=== PATIENT | female | born 1965 | race Caucasian/White ===

== ENCOUNTER 2019-01-07 11:40 | Emergency (ER) | payer OTHER, SELFPAY ==
[2019-01-07 11:40] VITALS: BP 148/93; PULSE 89; RESP 16; TEMP 36.6; O2SAT 95
--- NOTE | 2019-01-07 12:25 | ED_ITS ---
HPI - Abdominal Pain <CLARISSA Jovel - Last Filed: 01/07/19 22:11> General Chief Complaint: Abdominal Pain Stated Complaint: right side abd pain under R Breast down to ovarie Time Seen by Provider: 01/07/19 12:03 Source: patient Mode of arrival: ambulatory Limitations: no limitations History of Present Illness HPI narrative: 53-year-old healthy female that is a nonsmoker here for complaint of having right upper quadrant pain for the last 3 weeks. She was seen at [facility] emergency room 2 weeks ago and had a CT she reports that she was told that she had gallstones however no acute cholecystitis. She reports that her pain radiates down to her right shoulder area. She states she did have some nausea vomiting couple of days ago however she is tolerating p.o. intake at this time. Last p.o. intake was some Gatorade earlier today. She denies any urinary symptoms. Last bowel movement was earlier today and was unremarkable. She denies any constipation. No fevers or chills. She denies any stressors relievers of her discomfort. MD complaint: abdominal pain Related Data Allergies Allergy/AdvReac Type Severity Reaction Status Date / Time hydrocodone Allergy Verified 01/07/19 11:58 oxycodone AdvReac Agitated Verified 01/07/19 11:59 Review of Systems <CLARISSA Jovel - Last Filed: 01/07/19 22:11> Constitutional Denies chills, Denies fever(s), Denies lethargy and Denies weakness Eyes Denies change in vision, Denies eye discharge, Denies irritation and Denies loss of vision ENT Ears, Nose, Mouth, and Throat: Denies change in voice, Denies neck pain and Denies sore throat Cardiovascular Denies chest pain, Denies irregular heart rhythm, Denies lightheadedness, Denies palpitations, Denies dyspnea, Denies dyspnea on exertion and Denies orthopnea Respiratory Denies cough, Denies dyspnea, Denies dyspnea on exertion and Denies wheezing Gastrointestinal Gastrointestinal: Reports abdominal pain Genitourinary Denies hematuria, Denies flank pain, Denies urinary incontinence and Denies urinary urgency Musculoskeletal Denies neck pain Integumentary/Breasts Denies pruritus, Denies erythema, Denies rash and Denies wounds Neurologic Denies confusion, Denies loss of vision and Denies weakness Psychiatric Denies anxiety, Denies confusion, Denies depression, Denies homicidal ideation and Denies suicidal ideation Endocrine Denies palpitations Hematologic/Lymphatic Denies easy bruising Allergic/Immunologic Denies wheezing PFSH <CLARISSA Jovel - Last Filed: 01/07/19 22:11> Social History Smoking Status: Never smoker Social History Smoking Status: Never smoker Exam <CLARISSA Jovel - Last Filed: 01/07/19 22:11> Initial Vital Signs Initial Vital Signs: Vital Signs Temperature 97.9 F 01/07/19 11:40 Pulse Rate 89 01/07/19 11:40 Respiratory Rate 16 01/07/19 11:40 Blood Pressure 148/93 H 01/07/19 11:40 Pulse Oximetry 95 01/07/19 11:40 Const General: cooperative and well developed Nutritional Appearance: well nourished Orientation: alert, awake, oriented x3 and not confused HENMT Mouth: oral mucosae normal and moist mucous membranes Eyes Conjunctivae: conjunctivae normal Sclera: sclerae normal Pupils: PERRL EOM: EOM intact bilaterally Resp Effort & Inspection: normal respiratory effort, able to speak in complete sentences, no respiratory distress and no use of accessory muscles Auscultation: clear to auscultation bilaterally, no rales, no rhonchi and no wheezes Cardio Rate: regular rate Rhythm: regular rhythm Heart Sounds: no click, no gallops, no murmurs and no rubs GI Inspection: non-distended Palpation: soft, no hepatosplenomegaly, No guarding, No pulsatile mass and tender Auscultation: normal bowel sounds Other: Tenderness on palpation right upper quadrant General: No CVA tenderness Skin General: no rashes or lesions noted, No jaundice and No petechiae Neuro General: alert, oriented x3, gait normal and no focal motor deficits Speech: speech normal <Naina Chappell DO - Last Filed: 01/08/19 07:42> Initial Vital Signs Initial Vital Signs: Vital Signs Temperature 97.9 F 01/07/19 11:40 Pulse Rate 89 01/07/19 11:40 Respiratory Rate 16 01/07/19 11:40 Blood Pressure 148/93 H 01/07/19 11:40 Pulse Oximetry 95 03/21/19 11:40 Course <CLARISSA Jovel - Last Filed: 01/07/19 22:11> Orders Ordered: Discontinued Medications Sodium Chloride (Normal Saline 0.9%) 1,000 mls @ 1,000 mls/hr IV BOLUS ONE Stop: 01/07/19 13:10 Last Infusion: 01/07/19 14:17 Dose: 0 mls/hr Admin: 01/07/19 12:59 Dose: 1,000 mls/hr Vital Signs - 8 hr 01/07/19 15:37 Pulse Rate 76 Respiratory Rate 18 Blood Pressure 145/88 H Pulse Oximetry 98 <Naina Chappell DO - Last Filed: 01/08/19 07:42> Orders Ordered: Discontinued Medications Sodium Chloride (Normal Saline 0.9%) 1,000 mls @ 1,000 mls/hr IV BOLUS ONE Stop: 01/07/19 13:10 Last Infusion: 01/07/19 14:17 Dose: 0 mls/hr Admin: 01/07/19 12:59 Dose: 1,000 mls/hr Vital Signs - 8 hr 01/07/19 15:37 Pulse Rate 76 Respiratory Rate 18 Blood Pressure 145/88 H Pulse Oximetry 98 MDM - Abdominal Pain <CLARISSA Jovel - Last Filed: 01/07/19 22:11> Differential Diagnosis Differential diagnosis: Likely abdominal pain, constipation and small bowel obstruction Lab Data Result diagrams: 01/07/19 12:16 01/07/19 12:16 Lab Results 01/07/19 01/07/19 Range/Units 12:16 12:16 WBC 4.5 (4.5-11.0) X10^3/uL RBC 5.15 (4.0-5.2) X10^6/uL Hgb 14.3 (12.0-16.0) g/dL Hct 43.4 (36-46) % MCV 84.3 (80-100) fL MCH 27.8 (26-34) PG MCHC 33.1 (30-36) % RDW 13.3 (11.6-14.8) % Plt Count 207 (150-400) X10^3/uL Neut % (Auto) 30.5 L (50-75) % Lymph % (Auto) 48.7 H (25-40) % [place] % (Auto) 9.5 (3-14) % Eos % (Auto) 9.8 H (2-4) % Baso % (Auto) 1.5 (0-2) % Neut # (Auto) 1400 L (2385-4215) /uL Lymph # (Auto) 2200 (3046-6532) /uL [place] # (Auto) 400 (0-900) /uL Eos # (Auto) 400 (0-450) /uL Baso # (Auto) 100 (0-100) /uL Sodium 142 (137-145) mmol/L Potassium 4.1 (3.4-5.1) mmol/L Chloride 106 (98-107) mmol/L Carbon Dioxide 25 (22-32) mmol/L BUN 11 (7-17) mg/dL Creatinine 0.90 (0.52-1.04) mg/dL Estimated GFR > 60.0 (>60) mL/min BUN/Creatinine Ratio 12.2 (6-22) Glucose 93 (70-100) mg/dL Calcium 9.6 (8.4-10.2) mg/dL Total Bilirubin 0.8 (0.2-1.3) mg/dL AST 22 (14-36) IU/L ALT 18 (9-52) IU/L Alkaline Phosphatase 66 (38-126) U/L Total Protein 8.1 (6.3-8.2) g/dL Albumin 4.4 (3.5-5.0) g/dL Globulin 3.7 (1.7-4.1) g/dL Albumin/Globulin Ratio 1.2 (1.0-2.8) Lipase 44 (23-300) U/L Point of care testing: Point of Care Testing Test Results Negative Urine Dip Bedside Urine Glucose Negative Bedside Urine Bilirubin - Negative Bedside Urine Ketone - Negative Urine Specific [place] 1.010 Bedside Urine Occult Blood - Negative Bedside Urine pH 7.5 Bedside Urine Protein - Negative Bedside Urine Urobilinogen - Negative Bedside Urine Nitrite - Negative Bedside Urine Leukocytes +/- 15 Esterase MDM Narrative Medical decision making narrative: Records from [facility] Emergency Room show that CT was obtained a couple weeks ago and was negative. Ultrasound was also obtained from [facility] and was negative. Repeat ultrasound was obtained today and was negative for any acute findings. Laboratory results today were unremarkable. Urinalysis was negative for urinary tract infection. Will treat for abdominal wall muscle pain with [id number] ibuprofen. Foll ow up with primary care provider next week for re-evaluation. If continued abdominal pain consider referral gastroenterology for further evaluation. For any worsening symptoms return emergency room. <Naina Chappell, - Last Filed: 01/08/19 07:42> Lab Data Lab Results 01/07/19 01/07/19 Range/Units 12:16 12:16 WBC 4.5 (4.5-11.0) X10^3/uL RBC 5.15 (4.0-5.2) X10^6/uL Hgb 14.3 (12.0-16.0) g/dL Hct 43.4 (36-46) % MCV 84.3 (80-100) fL MCH 27.8 (26-34) PG MCHC 33.1 (30-36) % RDW 13.3 (11.6-14.8) % Plt Count 207 (150-400) X10^3/uL Neut % (Auto) 30.5 L (50-75) % Lymph % (Auto) 48.7 H (25-40) % [place] % (Auto) 9.5 (3-14) % Eos % (Auto) 9.8 H (2-4) % Baso % (Auto) 1.5 (0-2) % Neut # (Auto) 1400 L (0406-4492) /uL Lymph # (Auto) 2200 (8200-3636) /uL [place] # (Auto) 400 (0-900) /uL Eos # (Auto) 400 (0-450) /uL Baso # (Auto) 100 (0-100) /uL Sodium 142 (137-145) mmol/L Potassium 4.1 (3.4-5.1) mmol/L Chloride 106 (98-107) mmol/L Carbon Dioxide 25 (22-32) mmol/L BUN 11 (7-17) mg/dL Creatinine 0.90 (0.52-1.04) mg/dL Estimated GFR > 60.0 (>60) mL/min BUN/Creatinine Ratio 12.2 (6-22) Glucose 93 (70-100) mg/dL Calcium 9.6 (8.4-10.2) mg/dL Total Bilirubin 0.8 (0.2-1.3) mg/dL AST 22 (14-36) IU/L ALT 18 (9-52) IU/L Alkaline Phosphatase 66 (38-126) U/L Total Protein 8.1 (6.3-8.2) g/dL Albumin 4.4 (3.5-5.0) g/dL Globulin 3.7 (1.7-4.1) g/dL Albumin/Globulin Ratio 1.2 (1.0-2.8) Lipase 44 (23-300) U/L Point of care testing: Point of Care Testing Test Results Negative Urine Dip Bedside Urine Glucose Negative Bedside Urine Bilirubin - Negative Bedside Urine Ketone - Negative Urine Specific [place] 1.010 Bedside Urine Occult Blood - Negative Bedside Urine pH 7.5 Bedside Urine Protein - Negative Bedside Urine Urobilinogen - Negative Bedside Urine Nitrite - Negative Bedside Urine Leukocytes +/- 15 Esterase Discharge Plan Departure Patient Disposition: Home Clinical Impression: Abdominal pain Qualifiers: Abdominal location: right upper quadrant Qualified Code(s): R10.11 - Right upper quadrant pain Discharge Date/Time: 01/07/19 15:37 Interventions: ED Discharge Assessment Last Done: 01/07/19 15:37 Instructions: DI for Abdominal Pain-Adult Activity Restrictions/Additional Instructions: Ultrasound was obtained today and was negative for any acute findings. In cidental finding of hemangioma to the liver which is benign finding however recommend follow-up in approximately 6 months for repeat ultrasound to ensure is stable. Abdominal x-ray was also obtained today and was also unremarkable. Laboratory results today were unremarkable. Signs and symptoms presents as abdominal wall muscular pain. Rest area. Use [id number] Tylenol as needed for any discomfort. Follow up with her primary care provider for re- evaluation. For any worsening symptoms return to the emergency room. Referrals: [facility] [Provider Group] Stand Alone Forms: Work Release Note <Naina Chappell DO - Last Filed: 01/08/19 07:42> Cosign ED Attending Cosloganature Attestation: I was immediately available in the department for consultation. Documentation has been reviewed. I agree with assessment and plan.
[2019-01-07 12:41] LABS: Add Manual Diff / Slide Review NO; Basophils Absolute Auto 100 /uL (0-100); Basophils Percent Auto 1.5 % (0-2); Eosinophils Absolute Auto 400 /uL (0-450); Eosinophils Percent Auto 9.8 % (2-4); Hematocrit 43.4 % (36-46); Hemoglobin 14.3 g/dL (12.0-16.0); Lymphocytes Absolute Auto 2200 /uL (1100-4500); Lymphocytes Percent Auto 48.7 % (25-40); Mean Corpuscular HGB Conc 33.1 % (30-36); Mean Corpuscular Hemoglobin 27.8 PG (26-34); Mean Corpuscular Volume 84.3 fL (80-100); Monocytes Absolute Auto 400 /uL (0-900); Monocytes Percent Auto 9.5 % (3-14); Neutrophils Absolute Auto 1400 /uL (1500-7000); Neutrophils Percent Auto 30.5 % (50-75); Platelet Count 207 X10^3/uL (150-400); Red Blood Cell Count 5.15 X10^6/uL (4.0-5.2); Red Cell Distribution Width 13.3 % (11.6-14.8); White Blood Cell Count 4.5 X10^3/uL (4.5-11.0)
[2019-01-07 12:48] LABS: Alanine Aminotransferase 18 IU/L (9-52); Albumin 4.4 g/dL (3.5-5.0); Albumin Globulin Ratio 1.2 (1.0-2.8); Alkaline Phosphatase 66 U/L (38-126); Aspartate Aminotransferase 22 IU/L (14-36); BUN Creatinine Ratio 12.2 (6-22); Bilirubin Total 0.8 mg/dL (0.2-1.3); Blood Urea Nitrogen 11 mg/dL (7-17); Calcium 9.6 mg/dL (8.4-10.2); Carbon Dioxide 25 mmol/L (22-32); Chloride 106 mmol/L (98-107); Estimated Glomerular Filt Rate > 60.0 mL/min (>60); Globulin 3.7 g/dL (1.7-4.1); Glucose 93 mg/dL (70-100); HEMOLYSIS < 15 (0-50); Lipase 44 U/L (23-300); Potassium 4.1 mmol/L (3.4-5.1); Sodium 142 mmol/L (137-145); Total Protein 8.1 g/dL (6.3-8.2)
--- NOTE | 2019-01-07 12:50 | DI.US.S_ITS ---
PROCEDURE: US ABDOMEN COMPLETE INDICATIONS: RIGHT UPPER QUADRANT PAIN TECHNIQUE: Real-time scanning was performed of the abdominal and retroperitoneal organs, with image documentation. COMPARISON: [facility] Ultrasound, US, US RENAL, 12/24/2016, 7:28. [facility], CR, XR KUB, 12/13/2016, 12:45. [facility], CT, ABD/PELVIS W/CON (PNL), 02/14/2014, 10:16. [facility], US, ABDOMEN SONOGRAM, 02/10/2014, 17:30. US, ABDOMEN SONOGRAM, 08/26/2007, 7:50. FINDINGS: Liver: Liver is normal in size. Multiple hepatic cysts are noted. There is an echogenic focus in the right hepatic lobe measuring 11 x 11 x 14 mm. Gallbladder: The gallbladder is unremarkable. Wall thickness is within normal limits measuring 1.9 mm. Biliary ducts: Intrahepatic bile ducts are non-dilated. Extrahepatic bile duct caliber measures 3.0 mm. Normal is 6-7 mm or less in diameter, or 10 mm or less post-cholecystectomy. Pancreas: Visualized portions of the pancreas are sonographically normal. Spleen: Spleen is normal in size and homogeneous in echotexture. Kidneys: Kidneys are normal in size and echotexture. Right kidney measures 10.6 cm long; left kidney measures 9.6 cm long. No hydronephrosis or nephrolithiasis. No solid masses. Aorta: Visualized aorta is normal in caliber at less than 3 cm. Iliacs: Proximal common iliac arteries are normal in caliber at less than 2.5 cm. IVC: Intrahepatic inferior vena cava is patent. Miscellaneous: No free abdominal fluid. IMPRESSION: 1. Multiple hepatic cysts. 2. Hyperechoic focus in the right lobe suggestive of a hemangioma. This is not clearly identified on the 02/14/14 exam. However, this could be secondary to injection timing. 3-6 month interval ultrasound followup of this lesion is recommended to document stability. Dictated by: Luci Cordova M.D. on 01/07/2019 at 12:11 Approved by: Luci Cordova M.D. on 01/07/2019 at 12:19
[2019-01-07] MEDS: SODIUM CHLORIDE 0.9% 1,000 ML 1000 ML IV (12:59)
[2019-01-07 13:06] VITALS: BP 129/85; PULSE 82; RESP 16; O2SAT 99
--- NOTE | 2019-01-07 13:26 | DI.RAD.S_ITS ---
PROCEDURE: XR ACUTE ABDOMEN SERIES INDICATIONS: Pain right upper quadrant TECHNIQUE: One view chest and two views of the abdomen were acquired. COMPARISON: None. FINDINGS: Surgical changes and devices: None. Chest: Lungs are clear. Heart size is normal. No pleural effusions. No pneumoperitoneum. Abdomen: Bowel gas pattern is nonobstructive. Mild stool. No suspicious calcifications. Visualized solid organ contours appear normal. Bones: There is mild levocurvature. Bilateral hip joint degeneration. Diffuse spondylosis. IMPRESSION: No evidence of bowel obstruction. Mild stool No acute abnormality identified. Dictated by: Daniel Dozier M.D. on 01/07/2019 at 13:58 Approved by: Daniel Dozier M.D. on 01/07/2019 at 14:01
[2019-01-07 15:37] VITALS: BP 145/88; PULSE 76; RESP 18; O2SAT 98
== END 2019-01-07 15:37 | disposition home or self-care (01) ==
PROVIDERS: Emergency Provider Nurse Practitioner Family
DX: R10.11 Right upper quadrant pain (principal)
CPT/HCPCS: 36591; 74022; 76700; 80053; 81003; 81025; 83690; 85025; 96360; 99283; 99284

== ENCOUNTER → 2019-04-12 17:10 | Outpatient (CLI) | payer OTHER, SELFPAY | PROVIDERS: Visit Provider Physician Assistant | DX: J02.9 Acute pharyngitis, unspecified (principal) | CPT/HCPCS: 87070 ==

== ENCOUNTER → 2020-08-25 10:35 | Outpatient (CLI) | payer OTHER, SELFPAY ==
[2020-08-25 11:37] LABS: Add Manual Diff / Slide Review NO; Basophils Absolute Auto 100 /uL (0-100); Basophils Percent Auto 1.4 % (0-2); Eosinophils Absolute Auto 400 /uL (0-450); Hematocrit 38.9 % (36-46); Hemoglobin 13.1 g/dL (12.0-16.0); Lymphocytes Absolute Auto 3300 /uL (1100-4500); Lymphocytes Percent Auto 59.4 % (25-40); Mean Corpuscular HGB Conc 33.5 % (30-36); Mean Corpuscular Hemoglobin 28.6 PG (26-34); Mean Corpuscular Volume 85.4 fL (80-100); Monocytes Absolute Auto 300 /uL (0-900); Monocytes Percent Auto 5.2 % (3-14); Neutrophils Absolute Auto 1400 /uL (1500-7000); Platelet Count 231 X10^3/uL (150-400); Red Blood Cell Count 4.56 X10^6/uL (4.0-5.2); Red Cell Distribution Width 13.9 % (11.6-14.8); White Blood Cell Count 5.5 X10^3/uL (4.5-11.0)
[2020-08-25 12:06] LABS: Alanine Aminotransferase 13 IU/L (<35); Albumin 4.1 g/dL (3.5-5.0); Albumin Globulin Ratio 1.2 (1.0-2.8); Alkaline Phosphatase 61 U/L (38-126); Aspartate Aminotransferase 29 IU/L (14-36); BUN Creatinine Ratio 13.2 (6-22); Bilirubin Total 0.8 mg/dL (0.2-1.3); Blood Urea Nitrogen 12 mg/dL (7-17); Calcium 9.5 mg/dL (8.4-10.2); Carbon Dioxide 27 mmol/L (22-32); Chloride 110 mmol/L (98-107); Cholesterol 173 mg/dL (140-199); Estimated Glomerular Filt Rate > 60.0 mL/min (>60); Globulin 3.5 g/dL (1.7-4.1); Glucose 94 mg/dL (70-100); HDL Cholesterol 63 mg/dL (40-60); HEMOLYSIS < 15 (0-50); LDL Cholesterol Calculated 97 mg/dL (<100); Potassium 4.2 mmol/L (3.4-5.1); Sodium 141 mmol/L (137-145); Total Protein 7.6 g/dL (6.3-8.2); Triglycerides 66 mg/dL (35-150)
[2020-08-25 12:28] LABS: TSH w/ Reflex to FT4 3.09 uIU/mL (0.47-4.68)
== END ==
PROVIDERS: PCP Family Medicine; Referring Provider Family Medicine; Visit Provider Family Medicine
DX: D64.9 Anemia, unspecified (principal); K76.89 Other specified diseases of liver; Z13.220 Encounter for screening for lipoid disorders; Z13.29 Encounter for screening for other suspected endocrine disorder
CPT/HCPCS: 36415; 80053; 80061; 84443; 85025

== ENCOUNTER → 2020-09-13 09:31 | Outpatient (CLI) | payer OTHER, SELFPAY ==
--- NOTE | 2020-09-13 09:33 | DI.US.S_ITS ---
PROCEDURE: US ABDOMEN LIMITED INDICATIONS: RUQ Pain TECHNIQUE: Real-time scanning was performed of the abdominal and retroperitoneal organs, with image documentation. COMPARISON: [facility], RG, US ABDOMEN LIMITED, 12/13/2018, 16:47. [facility], RG, CT ABDOMEN/PELVIS WITH CONTRAST, 12/19/2018, 1:06. [facility], RG, CT ABDOMEN/PELVIS WITHOUT CONTRAST, 02/07/2020, 14:54. FINDINGS: Liver: Liver is normal in size and homogeneous in echotexture. Multiple hepatic cysts are seen. The largest on the left measures up to 5.5 cm. The largest on the right measures up 5.3 cm. Gallbladder: No findings of gallstones or sludge are seen. The gallbladder wall is not thickened, measuring 3 mm or less. No specific pericholecystic fluid is seen. The sonographic Sidhu sign is negative. Biliary ducts: Intrahepatic bile ducts are non-dilated. Extrahepatic bile duct caliber measures 4 mm. Normal is 6-7 mm or less in diameter, or 10 mm or less post-cholecystectomy. Pancreas: Visualized portions of the pancreas are sonographically normal. IMPRESSION: The gallbladder demonstrates a normal sonographic appearance. No biliary dilatation is seen. Prominent simple appearing liver cysts are again incidentally noted. Dictated by: Oswald Davis M.D. on 09/13/2020 at 9:35 Approved by: Oswald Davis M.D. on 09/13/2020 at 9:37
== END ==
PROVIDERS: PCP Family Medicine; Referring Provider Family Medicine; Visit Provider Family Medicine
DX: R10.11 Right upper quadrant pain (principal); K76.89 Other specified diseases of liver
CPT/HCPCS: 76705

== ENCOUNTER → 2020-10-26 09:48 | Outpatient (CLI) | payer OTHER, SELFPAY ==
[2020-10-26 11:18] LABS: COVID19 -Nasal RAPID Negative (Negative)
== END ==
PROVIDERS: PCP Family Medicine; Visit Provider Surgery
DX: Z20.822 Contact with and (suspected) exposure to COVID-19 (principal); Z01.812 Encounter for preprocedural laboratory examination
CPT/HCPCS: 87635; C9803

== ENCOUNTER 2020-10-27 09:14 | Day surgery (SDC) | payer OTHER, SELFPAY ==
[2020-10-27] VITALS (7 sets, daily range): BP systolic 118–151; BP diastolic 79–91; PULSE 69–89; RESP 12–18; TEMP 36.1–36.8; O2SAT 94–100; BMI 29.9
[2020-10-27] MEDS: SODIUM CHLORIDE 0.9% 1,000 ML 200 ML IV (09:52)
--- NOTE | 2020-10-27 11:07 | PM.HP.1 ---
History of Present Illness History of Present Illness Date Patient Seen: 10/27/20 Time Patient Seen: 11:07 Chief complaint: [facility] Narrative: Is a 55-year-old woman with history of unexplained right-sided abdominal pain. She denies any melena, hematochezia, unexplained weight loss. She reports constipation, and denies diarrhea. She has a history of hypertension, lower extremity swelling, GERD which is well controlled on medication, in the patient is edentulous. She believes that her dietary change since removal of her teeth has largely caused her constipation. She says her right-sided abdominal pain has been going on for about 6 months. She has never had a colonoscopy. She denies any personal or family history of colon polyps or colon cancers. ROS: Positive for lower extremity swelling, history of pneumonia, sinus drainage, arthritis, reflux symptoms, dysuria, depression, easy bruising. Thirteen system review is otherwise negative other than as mentioned below and in HPI. PE: GENERAL: Well groomed and cooperative. Appears stated age. Answers questions promptly and appropriately. Vital signs noted. HENT: Normocephalic, atraumatic. Hearing intact. EYES: Conjunctiva pink, sclera white, no periorbital swelling. CARDIOVASCULAR: Regular rate. No pedal edema. RESPIRATORY: Non-tachypneic, breathing comfortably on room air. GASTROINTESTINAL: Abdomen soft and non-distended GENITALURINARY: No flank tenderness. MUSCULOSKELETAL: Equal tone and mass bilaterally. SKIN: Warm, dry, soft, appropriate color for ethnicity. No other lesions, rashes, or wounds. NEURO: Alert and Oriented X 3. No gross sensory deficits, or cognitive issues. PSYCH: Appropriate affect and mood. Patient History Medical History Anxiety Back pain with sciatica Edema Frequent UTI (~1999) Hypertension Liver cyst Preventive measure Surgical History H/O tooth extraction (~2017) History of appendectomy (~1983) History of delivery (~1992) Family & Social History Family History Father Cancer Diabetes mellitus Hypertension Hyperlipidemia Stroke Mother Heart disease COPD (chronic obstructive pulmonary disease) Social History: household members spouse,children Tobacco & Substance use: Smoking Status Never smoker alcohol intake current alcohol intake frequency a few times a month Substance Use Type does not use Meds Home Medications and Allergies Home Medications Medication Instructions Recorded Confirmed Type trazodone 50 mg tablet 50 mg PO BEDTIME #90 tab 08/25/20 10/27/20 Rx Allergies Allergy/AdvReac Type Severity Reaction Status Date / Time bee pollen Allergy Severe Anaphylaxis Verified 10/27/20 09:48 kiwi Allergy Severe Anaphylaxis Verified 10/27/20 09:48 latex Allergy Mild Rash Verified 10/27/20 09:48 morphine AdvReac Mild Heart Verified 10/27/20 09:48 starts thundering and I feel like I'm gonna Exam Vital Signs (past 8 hours): - 10/27/20 09:52 Temperature 96.9 F L Pulse Rate 89 Respiratory Rate 16 Blood Pressure 151/91 H Pulse Oximetry 100 Oxygen Delivery Method Room Air Assessment & Plan Assessment and plan (1) GERD (gastroesophageal reflux disease): Status: Acute (2) Anemia: Status: Acute (3) Back pain, chronic: Status: Acute (4) Shoulder pain: Status: Acute (5) Constipation: Status: Acute (6) Change in bowel habit: Status: Acute (7) Right-sided abdominal pain of unknown cause: Status: Acute Assessment & Plan narrative: 18 minutes were spent reviewing the patient's outside records. 12 minutes were spent discussing with the patient her medical history, risks of the procedure, and pre and postop expectations. Risks and benefits of screening colonoscopy and possible polypectomy were discussed with the patient including risk of bleeding, perforation, need for additional procedures, risks of anesthesia. The patient desires to proceed with the colonoscopy procedure. COVID-19 COVID-19 status: Negative Result date/Date tested (Pos, Neg/Pending): 10/26/20 Time Spent With Patient Time with patient: 25 - 35 minutes Quality VTE Deep Vein Thrombosis/Pulmonary Embolism Present on Admission: No
[2020-10-27] MEDS: MIDAZOLAM 5 MG/5 ML VIAL IV (11:10)
[2020-10-27] MEDS: fentaNYL 250 MCG/5 ML INJ IV (11:12)
--- NOTE | 2020-10-27 11:31 | P.OP.ENDO_ITS ---
Operative Date/Time/Diagnoses Date of procedure: 10/27/20 Time of procedure: 11:31 Pre-op diagnosis: Average risk of colon cancer, right-sided abdominal pain Post-op diagnosis: other (Normal colon) Procedure & Clinicians Study performed: Colonoscopy Procedural sedation performed by the endoscopist Same procedure as scheduled: Yes Indications: Right-sided abdominal pain, average risk for colon cancer, never had a colonoscopy Surgeon: Nay Levi Procedure Notes SCOAP/Timeout: Performed Procedure in detail: The patient was brought to the room and placed in left lateral decubitus position with all bony prominences padded. A time-out was performed and then the patient was given procedural sedation starting with 4 mg of Versed and 100 mcg of fentanyl. Total of 8 mg of Versed and 200 micro g of fentanyl were given for the entire procedure. Vitals were monitored throughout the procedure and remained stable. Once adequately sedated, the procedure was begun. A rectal exam was performed revealing no abnormalities. The colonoscope was then introduced to the rectum and advanced to the cecum in the usual fashion. The cecum was identified by the appendiceal orifice, the mucosal tri- fold, and the ileocecal valve. The scope was then retracted while rotating side to side and examining each mucosal fold. At the conclusion of the procedure retroflexion was performed and small grade 1-2 internal hemorrhoids without stigmata of bleeding were seen. The scope was then withdrawn from the rectum the procedure was concluded. The patient tolerated the procedure well and was transferred to the PACU in stable condition. Scope withdrawal time: 13 Sedation minutes: 19 Specimen(s): none sent Complications: none Impression: Normal appearing colon Post-procedure Recommendations: Colonscopy in 10 years Follow up: as needed Disposition: PACU
== END 2020-10-27 12:36 | disposition home or self-care (01) ==
PROVIDERS: PCP Family Medicine; Referring Provider Surgery; Visit Provider Surgery
PROC: 0DJD8ZZ Inspection of Lower Intestinal Tract, Via Natural or Artificial Opening Endoscopic (ICD-10-PCS; CPT 45378; principal; 2020-10-27 10:45)
DX: R10.9 Unspecified abdominal pain (principal); I10 Essential (primary) hypertension; F41.9 Anxiety disorder, unspecified; K59.00 Constipation, unspecified; K21.9 Gastro-esophageal reflux disease without esophagitis; K64.0 First degree hemorrhoids
CPT/HCPCS: 45378; 99152; J2250; J3010

== ENCOUNTER → 2020-11-07 09:02 | Outpatient (CLI) | payer OTHER, SELFPAY ==
--- NOTE | 2020-11-07 09:04 | DI.RAD.S_ITS ---
PROCEDURE: XR LUMBAR SPINE 2-3V INDICATIONS: sciatica TECHNIQUE: 3 views of the lumbar spine were acquired. COMPARISON: None. FINDINGS: Bones: 5 [id number] vertebrae are present. There is normal bony alignment. No vertebral body compression fractures. No suspicious bony lesions. Soft tissues: Overlying bowel gas pattern is normal. No suspicious soft tissue calcifications. IMPRESSION: Degenerative disc disease is mild in severity at L4-5 and L5-S1 and facet osteoarthritis is moderate in severity at L5-S1. Mild convex leftward scoliosis is centered at the L4 level. No compression fracture found. There is potential for mild spinal and foraminal stenosis at L5-S1. Follow-up by MR scanning may be warranted given this appearance. Dictated by: Farhat Burns M.D. on 11/07/2020 at 13:34 Approved by: Farhat Burns M.D. on 11/07/2020 at 13:35
== END ==
PROVIDERS: PCP Family Medicine; Referring Provider Family Medicine; Visit Provider Family Medicine
DX: M51.16 Intervertebral disc disorders with radiculopathy, lumbar region (principal); M51.17 Intervertebral disc disorders with radiculopathy, lumbosacral region; M47.27 Other spondylosis with radiculopathy, lumbosacral region; M41.86 Other forms of scoliosis, lumbar region
CPT/HCPCS: 72100

== ENCOUNTER → 2020-11-22 12:48 | Outpatient (CLI) | payer OTHER, SELFPAY ==
--- NOTE | 2020-11-22 12:50 | DI.MRI.S_ITS ---
PROCEDURE: MR LUMBAR SPINE WO CON INDICATIONS: Back pain TECHNIQUE: Noncontrast sagittal T1 spin echo and T2 fast echo, sagittal STIR, axial T1 and T2 fast spin echo through the lumbar spine. In cases with scoliosis, additional coronal T2 fast spin echo may be performed. COMPARISON: None. FINDINGS: Image quality: Excellent. Alignment and Curvature: There is normal bony alignment. Bone Marrow: Marrow is of normal overall signal. No acute vertebral body compression fractures. Spinal Cord: Conus medullaris terminates at the normal level. Visualized cord demonstrates normal signal and size. Region Soft Tissues: No paravertebral masses. T12-L1: No spinal canal or neural foraminal stenosis. L1-L2: No spinal canal or neural foraminal stenosis. L2-L3: No spinal canal or neural foraminal stenosis. L3-L4: No spinal canal or neural foraminal stenosis. L4-L5: No spinal canal or neural foraminal stenosis. L5-S1: Disc bulge flattens the ventral thecal sac. No mass effect upon the traversing S1 nerve roots. No neural foraminal stenosis. IMPRESSION: Mild degenerative changes without findings of focal nerve root impingement. Dictated by: Bud Conde M.D. on 11/22/2020 at 14:09 Approved by: Bud Conde M.D. on 11/22/2020 at 14:18
== END ==
PROVIDERS: PCP Family Medicine; Referring Provider Family Medicine; Visit Provider Family Medicine
DX: M54.42 Lumbago with sciatica, left side (principal); M47.817 Spondylosis without myelopathy or radiculopathy, lumbosacral region; G89.29 Other chronic pain
CPT/HCPCS: 72148

== ENCOUNTER → 2022-06-20 11:21 | Outpatient (CLI) | payer OTHER, SELFPAY ==
--- NOTE | 2022-06-20 11:25 | DI.RAD.S_ITS ---
PROCEDURE: XR HIP W PEL IF DONE RT 2V INDICATIONS: Progressive right hip pain TECHNIQUE: AP pelvis with lateral view(s) of the right hip(s). COMPARISON: [facility], , CT ABDOMEN/PELVIS WITHOUT CONTRAST, 02/07/2020, 14:54. FINDINGS: Bones: No fractures or dislocations. Pelvic ring appears intact. No avascular necrosis of the right femoral head demonstrated. There is bilateral joint space narrowing, acetabular roof sclerosis, and subchondral cystic change. Right hip is slightly worse than the left. Findings are felt to be similar to 2020. No suspicious bony lesions. Soft tissues: The visualized bowel gas pattern is normal. No suspicious soft tissue calcifications. IMPRESSION: Moderate bilateral hip DJD. Dictated by: Micah Jiménez M.D. on 06/20/2022 at 12:27 Approved by: Micah Jiménez M.D. on 06/20/2022 at 12:29
[2022-06-20 13:51] LABS: Add Manual Diff / Slide Review NO; Basophils Absolute Auto 100 /uL (0-100); Basophils Percent Auto 1.1 % (0-2); Eosinophils Absolute Auto 600 /uL (0-450); Eosinophils Percent Auto 8.7 % (2-4); Hematocrit 38.3 % (36-46); Hemoglobin 12.6 g/dL (12.0-16.0); Lymphocytes Absolute Auto 4300 /uL (1100-4500); Lymphocytes Percent Auto 58.7 % (25-40); Mean Corpuscular HGB Conc 32.9 % (30-36); Mean Corpuscular Hemoglobin 27.9 PG (26-34); Mean Corpuscular Volume 84.8 fL (80-100); Monocytes Absolute Auto 400 /uL (0-900); Monocytes Percent Auto 5.4 % (3-14); Neutrophils Absolute Auto 1900 /uL (1500-7000); Neutrophils Percent Auto 26.1 % (50-75); Platelet Count 246 X10^3/uL (150-400); Red Blood Cell Count 4.52 X10^6/uL (4.0-5.2); Red Cell Distribution Width 13.7 % (11.6-14.8); White Blood Cell Count 7.3 X10^3/uL (4.5-11.0)
[2022-06-20 14:06] LABS: Appearance Urine UA CLEAR; Bilirubin Urine UA NEGATIVE (NEGATIVE); Color Urine UA YELLOW; Glucose Urine UA NEGATIVE (Negative); Ketones Urine UA NEGATIVE (NEGATIVE); Leukocyte Esterase Urine UA 2+ (NEGATIVE); Nitrite Urine UA NEGATIVE (Negative); Occult Blood Urine UA 1+ (Negative); Protein Urine UA NEGATIVE (Negative); Urobilinogen Urine UA 0.2 E.U./dL (0.2)
[2022-06-20 14:35] LABS: Bacteria Urine Few (2-10); Culture Indicated Urine Specimen Cultured; RBC Urine 0-1/HPF (0-5/HPF); Squamous Epithelial Cell Urine 1-5 /HPF (0-5/HPF); WBC Urine 1-5/HPF (0-5/HPF)
[2022-06-20 14:43] LABS: Alanine Aminotransferase 17 IU/L (<35); Albumin 4.1 g/dL (3.5-5.0); Albumin Globulin Ratio 1.2 (1.0-2.8); Alkaline Phosphatase 62 U/L (38-126); Aspartate Aminotransferase 34 IU/L (14-36); BUN Creatinine Ratio 16.8 (6-22); Bilirubin Total 0.8 mg/dL (0.2-1.3); Blood Urea Nitrogen 16 mg/dL (7-17); Calcium 9.2 mg/dL (8.4-10.2); Carbon Dioxide 26 mmol/L (22-32); Chloride 109 mmol/L (98-107); Estimated Glomerular Filt Rate > 60 mL/min (>60); Globulin 3.3 g/dL (1.7-4.1); Glucose 93 mg/dL (70-100); HEMOLYSIS < 15 (0-50); Sodium 140 mmol/L (137-145); Total Protein 7.4 g/dL (6.3-8.2)
== END ==
PROVIDERS: PCP Family Medicine; Referring Provider Family Medicine; Visit Provider Family Medicine
DX: M25.551 Pain in right hip (principal); R10.2 Pelvic and perineal pain; M16.0 Bilateral primary osteoarthritis of hip
CPT/HCPCS: 36415; 73502; 80053; 81001; 85025; 87077; 87086; 87147

== ENCOUNTER → 2022-08-01 10:36 | Outpatient (CLI) | payer OTHER, SELFPAY ==
[2022-08-01 11:05] LABS: Appearance Urine UA CLEAR; Bilirubin Urine UA NEGATIVE (NEGATIVE); Color Urine UA YELLOW; Glucose Urine UA NEGATIVE (Negative); Ketones Urine UA NEGATIVE (NEGATIVE); Leukocyte Esterase Urine UA 1+ (NEGATIVE); Nitrite Urine UA NEGATIVE (Negative); Occult Blood Urine UA NEGATIVE (Negative); Protein Urine UA NEGATIVE (Negative); Specific Gravity Urine UA <=1.005 (1.000-1.035); Urobilinogen Urine UA 0.2 E.U./dL (0.2)
[2022-08-01 11:29] LABS: Amorphous Sediment Urine 1+; Bacteria Urine Few (2-10); Culture Indicated Urine Specimen Cultured; RBC Urine None Seen (0-5/HPF); Squamous Epithelial Cell Urine 0-1 /HPF (0-5/HPF); WBC Urine 1-5/HPF (0-5/HPF)
[2022-08-01 11:34] LABS: Hematocrit 37.7 % (36-46); Hemoglobin 12.9 g/dL (12.0-16.0); Mean Corpuscular HGB Conc 34.2 % (30-36); Mean Corpuscular Volume 84.6 fL (80-100); Platelet Count 237 X10^3/uL (150-400); Red Blood Cell Count 4.46 X10^6/uL (4.0-5.2); Red Cell Distribution Width 13.7 % (11.6-14.8); White Blood Cell Count 6.6 X10^3/uL (4.5-11.0)
[2022-08-01 11:42] LABS: Alanine Aminotransferase 19 IU/L (<35); Albumin 4.1 g/dL (3.5-5.0); Albumin Globulin Ratio 1.2 (1.0-2.8); Alkaline Phosphatase 59 U/L (38-126); Aspartate Aminotransferase 41 IU/L (14-36); BUN Creatinine Ratio 19.1 (6-22); Bilirubin Total 1.4 mg/dL (0.2-1.3); Blood Urea Nitrogen 17 mg/dL (7-17); Calcium 9.3 mg/dL (8.4-10.2); Carbon Dioxide 25 mmol/L (22-32); Chloride 105 mmol/L (98-107); Estimated Glomerular Filt Rate > 60 mL/min (>60); Globulin 3.5 g/dL (1.7-4.1); Glucose 94 mg/dL (70-100); HEMOLYSIS < 15 (0-50); Potassium 4.1 mmol/L (3.4-5.1); Sodium 140 mmol/L (137-145); Total Protein 7.6 g/dL (6.3-8.2)
[2022-08-01 14:03] LABS: Neutrophils Absolute Manual 2178 /uL (3000-5900); RBC Morphology Norm; Total Cells Counted 100
== END ==
PROVIDERS: PCP Family Medicine; Referring Provider Family Medicine; Visit Provider Family Medicine
DX: K76.89 Other specified diseases of liver (principal); R10.2 Pelvic and perineal pain
CPT/HCPCS: 36415; 80053; 81001; 85025; 87086

== ENCOUNTER → 2022-08-09 13:32 | Outpatient (CLI) | payer OTHER, SELFPAY ==
--- NOTE | 2022-08-09 | DI.US.S_ITS ---
PROCEDURE: US ABDOMEN LIMITED INDICATIONS: LIVER CYST/RUQ PAIN TECHNIQUE: Real-time focused scanning was performed of the abdomen, with image documentation. COMPARISON: [facility], RG, CT ABDOMEN/PELVIS WITHOUT CONTRAST, 02/07/2020, 14:54. [facility], US, US PELVIC COMPLETE, 08/09/2022, 15:22. [facility], US, US ABDOMEN COMPLETE, 01/07/2019, 12:30. FINDINGS: The liver demonstrates normal size and normal overall echotexture. Liver cysts are seen, with the largest seen involving the medial left lobe measuring 4.9 x 3.8 x 4.7 cm. The previously seen apparent hemangioma is not definitely seen on the current images. No findings of gallstones or sludge are seen. The gallbladder wall is not thickened, measuring 3 mm or less. No specific pericholecystic fluid is seen. The sonographic Sidhu sign is negative. There is no biliary dilatation, the common bile duct measures 4-5 mm. Well seen, secondary to overlying bowel gas. IMPRESSION: Numerous liver cysts are seen, without suspicious lesions on this study. The gallbladder demonstrates a normal sonographic appearance. No biliary dilatation is seen. Dictated by: Oswald Davis M.D. on 08/09/2022 at 15:34 Approved by: Oswald Davis M.D. on 08/09/2022 at 15:35
--- NOTE | 2022-08-09 13:34 | DI.US.S_ITS ---
PROCEDURE: US PELVIC COMPLETE INDICATIONS: PAIN TECHNIQUE: Real-time scanning was performed of the pelvic organs, with image documentation. Additional endovaginal scanning was necessary due to incomplete visualization of the adnexal and endometrial structures by transabdominal scanning. COMPARISON: None. FINDINGS: Uterus: Uterus is anteverted and normal in size at 4.9 x 2.7 x 4.3 cm. The myometrium is homogeneous. The endometrium measures 2 mm combined thickness. Ovaries: The right ovary is not visualized. The left ovary measures 1.0 x 1.2 x 1.0 cm, with a calculated ovarian volume of 0.6 cc. The ovaries have a normal sonographic appearance. Less than 12 follicles can be seen in each ovary. No adnexal masses are seen. Other: No pathologic free abdominal or pelvic fluid. IMPRESSION: Unremarkable exam. We strive to produce accurate, complete, and clear reports of imaging services. To assist us in improving patient care, this report was composed using standard report templates and voice recognition software. Therefore, it may contain abnormal punctuation, insertions and/or omissions. Occasional wrong-word or sound-alike substitutions may occur. Though we review the report and make efforts to correct it, we do recommend that the report be read carefully in proper context to recognize any text inaccuracies. Dictated by: Luci Cordova M.D. on 08/09/2022 at 17:23 Approved by: Luci Cordova M.D. on 08/09/2022 at 17:24
== END ==
PROVIDERS: PCP Family Medicine; Referring Provider Family Medicine; Visit Provider Family Medicine
DX: R10.2 Pelvic and perineal pain (principal); K76.89 Other specified diseases of liver
CPT/HCPCS: 76705; 76830; 76856; 93975

== ENCOUNTER 2022-10-02 18:00 | Emergency (ER) | payer OTHER, SELFPAY ==
[2022-10-02 18:26] VITALS: BP 139/83; PULSE 109; RESP 20; TEMP 37.7; O2SAT 96; BMI 25.7
--- NOTE | 2022-10-02 18:30 | DI.RAD.S_ITS ---
PROCEDURE: XR CHEST 2V INDICATIONS: more productive cough, since flu TECHNIQUE: 2 views of the chest were acquired. COMPARISON: None. FINDINGS: Surgical changes and devices: None. Lungs and pleura: Lungs are clear. No pleural effusions or pneumothorax. Mediastinum: Mediastinal contours are normal. Heart size is normal. Bones and chest wall: No suspicious bony abnormalities. Soft tissues appear unremarkable. IMPRESSION: No acute cardiopulmonary process demonstrated radiographically. Dictated by: Bud Conde M.D. on 10/02/2022 at 19:02 Approved by: Bud Conde M.D. on 10/02/2022 at 19:03
--- NOTE | 2022-10-02 19:57 | ED.URI ---
HPI - URI/Sore Throat General Chief Complaint: Upper Respiratory Symptoms Stated Complaint: sob/flu/coughing Time Seen by Provider: 10/02/22 19:39 Source: patient Mode of arrival: Ambulatory History of Present Illness HPI Narrative: Patient is a 57-year-old healthy female who presents with cough body aches and shortness of breath. She states she was diagnosed with influenza on September 25. She said they tested her for COVID she was negative. She continues to have body aches and increasing shortness of breath. He flew back from [place] 2 days ago. She denies any nausea vomiting or abdominal pain. Related Data Allergies Allergy/AdvReac Type Severity Reaction Status Date / Time bee pollen Allergy Severe Anaphylaxis Verified 10/02/22 20:18 kiwi Allergy Severe Anaphylaxis Verified 10/02/22 20:18 latex Allergy Mild Rash Verified 10/02/22 20:18 hydrocodone Allergy Verified 10/02/22 20:18 amitriptyline AdvReac Mild had really Verified 10/02/22 20:18 bad/unusual dreams morphine AdvReac Mild Heart Verified 10/02/22 20:18 starts thundering and I feel like I'm gonna oxycodone AdvReac Agitated Verified 10/02/22 20:18 Review of Systems Review of Systems Narrative: GENERAL: See HPI HEENT: Denies sinus pain, ear pain, sore throat, difficulty swallowing, neck pain RESPIRATORY: Denies dyspnea, cough, wheezing, hemoptysis, sputum. CARDIOVASCULAR: Denies chest pain, palpitations, orthopnea, edema GASTROINTESTINAL: Denies nausea, vomiting, abdominal pain, diarrhea, constipation, melena. : Denies dysuria, frequency, incontinence, hematuria, urinary retention, flank pain. MUSCULOSKELETAL: Denies weakness, joint pain, or bony pain SKIN: No rash, no erythema, no pruritus NEUROLOGIC: Denies weakness, dizziness, headache, numbness, change in speech, confusion PSYCHIATRIC: No concerning psychosocial issues. 12 point review of systems is negative except for those stated above and HPI Patient History Medical History Anxiety Back pain with sciatica Edema Frequent UTI (~1999) Hip pain, right Hypertension Liver cyst Pelvic pain Preventive measure Surgical History H/O tooth extraction (~2017) History of appendectomy (~1983) History of delivery (~1992) Family History Father Cancer Diabetes mellitus Hypertension Hyperlipidemia Stroke Mother Heart disease COPD (chronic obstructive pulmonary disease) Social History household members: spouse and children Smoking Status: Never smoker alcohol intake: current substance use type: does not use Smoking Status: Never smoker alcohol intake frequency: a few times a month Substance Use Type: does not use Exam Initial Vital Signs Initial Vital Signs: Vital Signs Temperature 99.9 F H 10/02/22 18:26 Pulse Rate 109 H 10/02/22 18:26 Respiratory Rate 20 10/02/22 18:26 Blood Pressure 139/83 10/02/22 18:26 Pulse Oximetry 96 10/02/22 18:26 Oxygen Delivery Method 10/02/22 18:26 GENERAL: Alert 57-year-old female appears to not feel well HEENT: Head atraumatic,EOMI, pupils reactive, face symmetric, moist mucous membranes CARDIOVASCULAR: Regular rate and rhythm without murmurs, rubs or gallops. RESPIRATORY: Breath sounds equal bilaterally, no wheezes rales or rhonchi. ABDOMEN: Soft, nontender. Normoactive bowel sounds all 4 quadrants. No guarding or rebound. EXTREMITIES: Normal range of motion, no clubbing or edema. Neurovascularly intact NEUROLOGICAL: Alert and oriented x4.Normal gait and speech. SKIN: Warm, dry, no laceration, no petechiae, no rashes or lesions. Scores PERC Score Age greater than or equal to 50 years: Yes Heart rate greater than or equal to 100 bpm: Yes Room Air O2 Sat less than 95%: No Unilateral leg swelling: No Recent trauma or surgery: No Hemoptysis: No Prior PE or DVT: No Hormone Use: No Total PERC Score: 2 Course Orders Ordered: Discontinued Medications Albuterol (Albuterol 2.5 Mg/3 Ml Neb (Adult)) 2.5 mg INH NOW ONE Stop: 10/02/22 20:04 Last Admin: 10/02/22 20:34 Dose: 2.5 mg Documented By: MR Inouterol (Albuterol Hfa Prepack) [address] [facility] SEEINSTR ONE Stop: 10/02/22 21:37 Last Admin: 10/02/22 21:41 Dose: 1 box Documented By: TANA Sodium Chloride (Normal Saline 0.9%) 1,000 mls @ 1,000 mls/hr IV BOLUS ONE Stop: 10/02/22 21:01 Last Infusion: 10/02/22 21:46 Dose: 0 mls/hr Documented By: Admin: 10/02/22 20:19 Dose: 1,000 mls/hr Documented By: PRIYA Vital Signs Vital signs: Vital Signs - 8 hr 10/02/22 18:26 Temperature 99.9 F H Pulse Rate 109 H Respiratory Rate 20 Blood Pressure 139/83 Pulse Oximetry 96 Oxygen Delivery Method Room Air MDM - URI/Sore Throat Lab Data Result diagrams: 10/02/22 20:15 10/02/22 20:15 Labs: Lab Results 10/02/22 10/02/22 10/02/22 Range/Units 20:15 20:15 20:15 WBC 7.7 (4.5-11.0) X10^3/uL RBC 4.78 (4.0-5.2) X10^6/uL Hgb 13.2 (12.0-16.0) g/dL Hct 39.7 (36-46) % MCV 83.1 (80-100) fL MCH 27.7 (26-34) PG MCHC 33.3 (30-36) % RDW 13.6 (11.6-14.8) % Plt Count 224 (150-400) X10^3/uL Neut % (Auto) 53.4 (50-75) % Lymph % (Auto) 36.7 (25-40) % [place] % (Auto) 8.1 (3-14) % Eos % (Auto) 1.4 L (2-4) % Baso % (Auto) 0.4 (0-2) % Neut # (Auto) 4100 (0724-0046) /uL Lymph # (Auto) 2800 (1337-8249) /uL [place] # (Auto) 600 (0-900) /uL Eos # (Auto) 100 (0-450) /uL Baso # (Auto) 0 (0-100) /uL D-Dimer 488 (<500) ng/ml Sodium 140 (137-145) mmol/L Potassium 3.8 (3.4-5.1) mmol/L Chloride 104 (98-107) mmol/L Carbon Dioxide 23 (22-32) mmol/L BUN 10 (7-17) mg/dL Creatinine 0.85 (0.52-1.04) mg/dL Estimated GFR > 60 (>60) mL/min BUN/Creatinine Ratio 11.8 (6-22) Glucose 94 (70-100) mg/dL Calcium 8.7 (8.4-10.2) mg/dL Total Bilirubin 0.9 (0.2-1.3) mg/dL AST 22 (14-36) IU/L ALT 17 (<35) IU/L Alkaline Phosphatase 66 (38-126) U/L Total Creatine Kinase 43 (30-135) U/L CK-MB (CK-2) TNP CK-MB (CK-2) Rel Index TNP Troponin I < 0.012 (0.01-0.034) ng/mL Total Protein 7.9 (6.3-8.2) g/dL Albumin 3.9 (3.5-5.0) g/dL Globulin 4.0 (1.7-4.1) g/dL Albumin/Globulin Ratio 1.0 (1.0-2.8) Imaging Data Chest x-ray: Radiologist's Impression: XRay Report Signed Patient: Janna aGr MR#: [id number] : 1965 Acct:[id number] Age/Sex: 57 / F Date of Service: 10/02/22 Loc: ED Accession Number: [id number] ?? Procedure: XR chest 2V Ordering Provider: Naina Chappell D.O. PROCEDURE:? XR CHEST 2V ? INDICATIONS:? more productive cough, since flu ? TECHNIQUE:? 2 views of the chest were acquired.? ? COMPARISON:? None. ? FINDINGS:? ? Surgical changes and devices:? None.? ? Lungs and pleura:? Lungs are clear.? No pleural effusions or pneumothorax.? ? Mediastinum:? Mediastinal contours are normal.? Heart size is normal.? ? Bones and chest wall:? No suspicious bony abnormalities.? Soft tissues appear unremarkable.? ? IMPRESSION:? No acute cardiopulmonary process demonstrated radiographically. ? ? Dictated by: Bud Conde M.D. on 10/02/2022 at 19:02 ? ? Approved by: Bud Conde M.D. on 10/02/2022 at 19:03 ? ECG Data Interpretation: Sinus rhythm rate 94 WV interval 142 QRS [address] changes or T-wave inversions no priors to compare MDM Narrative Medical decision making narrative: Patient was diagnosed with the flu about 1 week ago. She continues to have worsening symptoms she also recently flew on an airplane. D-dimer is negative she is not hypoxic. No need for further evaluation she has a low PERC score. She has no evidence of pneumonia no need for antibiotics. Blood work is overall reassuring. No sign of cardiac issue. Overall feeling a bit better. At this time supportive care only. Discharge Plan Departure Patient Disposition: Home Clinical Impression: Influenza Instructions: DI for Influenza -- Adult Activity Restrictions/Additional Instructions: *You have been diagnosed with influenza *What to do: At this time no evidence of pneumonia no need for antibiotics. Blood work is reassuring. Continue to rest and hydrate. You should start feeling better *Continue to take medications as directed Tylenol 650 mg every 4-6 hours if needed for [id number] pain or fever Motrin 600mg every 6 8 hours if needed for [id number] pain or fever *Follow up with your primary care provider in 2-3 days or call [phone] *Return to ER if you should have increasing shortness of breath chest pain not tolerating fluids or any new, worsening or concerning symptoms Referrals: Zain Alba DO [Primary Care Provider] - Visit Report Forms: Patient Portal/API
[2022-10-02] MEDS: SODIUM CHLORIDE 0.9% 1,000 ML 1000 ML IV (20:19)
[2022-10-02] MEDS: ALBUTEROL 2.5 MG/3 ML NEB (ADULT) INH (20:34)
[2022-10-02 20:49] LABS: Add Manual Diff / Slide Review NO; Basophils Absolute Auto 0 /uL (0-100); Basophils Percent Auto 0.4 % (0-2); Eosinophils Absolute Auto 100 /uL (0-450); Eosinophils Percent Auto 1.4 % (2-4); Hematocrit 39.7 % (36-46); Hemoglobin 13.2 g/dL (12.0-16.0); Lymphocytes Absolute Auto 2800 /uL (1100-4500); Lymphocytes Percent Auto 36.7 % (25-40); Mean Corpuscular HGB Conc 33.3 % (30-36); Mean Corpuscular Hemoglobin 27.7 PG (26-34); Mean Corpuscular Volume 83.1 fL (80-100); Monocytes Absolute Auto 600 /uL (0-900); Monocytes Percent Auto 8.1 % (3-14); Neutrophils Absolute Auto 4100 /uL (1500-7000); Neutrophils Percent Auto 53.4 % (50-75); Platelet Count 224 X10^3/uL (150-400); Red Blood Cell Count 4.78 X10^6/uL (4.0-5.2); Red Cell Distribution Width 13.6 % (11.6-14.8); White Blood Cell Count 7.7 X10^3/uL (4.5-11.0)
[2022-10-02 20:59] LABS: D Dimer 488 ng/ml (<500)
[2022-10-02 21:02] LABS: Alanine Aminotransferase 17 IU/L (<35); Albumin 3.9 g/dL (3.5-5.0); Alkaline Phosphatase 66 U/L (38-126); Aspartate Aminotransferase 22 IU/L (14-36); BUN Creatinine Ratio 11.8 (6-22); Bilirubin Total 0.9 mg/dL (0.2-1.3); Blood Urea Nitrogen 10 mg/dL (7-17); Calcium 8.7 mg/dL (8.4-10.2); Carbon Dioxide 23 mmol/L (22-32); Chloride 104 mmol/L (98-107); Creatine Kinase 43 U/L (30-135); Estimated Glomerular Filt Rate > 60 mL/min (>60); Glucose 94 mg/dL (70-100); HEMOLYSIS < 15 (0-50); Potassium 3.8 mmol/L (3.4-5.1); Sodium 140 mmol/L (137-145); Total Protein 7.9 g/dL (6.3-8.2)
[2022-10-02 21:13] LABS: Troponin I < 0.012 ng/mL (0.01-0.034)
[2022-10-02] MEDS: ALBUTEROL HFA PREPACK 1 BOX MISC (21:41)
== END 2022-10-02 21:49 | disposition home or self-care (01) ==
PROVIDERS: Emergency Provider Emergency Medicine; PCP Family Medicine
DX: J11.1 Influenza due to unidentified influenza virus with other respiratory manifestations (principal); R06.02 Shortness of breath; Z20.822 Contact with and (suspected) exposure to COVID-19
CPT/HCPCS: 36415; 71046; 80053; 82550; 84484; 85025; 85379; 93005; 93010; 94640; 99284; J7613

== ENCOUNTER → 2023-03-18 16:32 | Outpatient (CLI) | payer OTHER, SELFPAY | PROVIDERS: PCP Family Medicine; Visit Provider Physician Assistant | DX: J02.9 Acute pharyngitis, unspecified (principal) | CPT/HCPCS: 87070 ==

== ENCOUNTER → 2023-03-18 16:38 | Outpatient (CLI) | payer OTHER, SELFPAY ==
--- NOTE | 2023-03-18 16:39 | DI.RAD.S_ITS ---
PROCEDURE: XR RIBS RT MIN 3V W CXR 1V INDICATIONS: Rib pain with coughing TECHNIQUE: To views of the right ribs were acquired, along with a single view chest. COMPARISON: [facility], , XR CHEST 2V, 10/02/2022, 18:39. FINDINGS: Surgical changes and devices: None. Bones and chest wall: No fractures or dislocations. No suspicious bony lesions. Overlying soft tissues appear unremarkable. Lungs and pleura: No pleural effusions or pneumothorax. Lungs appear clear. Mediastinum: Mediastinal contours appear normal. Heart size is normal. IMPRESSION: No displaced rib fractures. Dictated by: Lai Egan M.D. on 03/19/2023 at 11:50 Approved by: Lai Egan M.D. on 03/19/2023 at 11:51
== END ==
PROVIDERS: PCP Family Medicine; Referring Provider Physician Assistant; Visit Provider Physician Assistant
DX: R05.9 Cough, unspecified (principal); J02.9 Acute pharyngitis, unspecified
CPT/HCPCS: 71101; 87070

== ENCOUNTER 2023-07-25 01:16 | Emergency (ER) | payer OTHER, SELFPAY ==
[2023-07-25 01:24] VITALS: BP 155/96; PULSE 106; RESP 20; TEMP 37; O2SAT 97; BMI 30.1
--- NOTE | 2023-07-25 01:26 | ED_ITS ---
HPI - General Adult General Chief complaint: Abdominal Pain Stated complaint: covid +, vomiting and abd pain Time Seen by Provider: 07/25/23 01:25 History of Present Illness HPI narrative: 57-year-old female nonsmoker with history of GERD, liver cyst, anxiety was diagnosed with COVID 2 days ago and presents with a chief complaint of persistent nausea and vomiting as well as right upper quadrant pain. She states that she often times has episodes of abdominal pain and this is not necessarily unlike that. Patient states that she had had primarily respiratory symptoms until 2 days ago but then started having vomiting and right upper quadrant pain. Her pain seems to be worse when she moves and improves with rest. She has had some fever and chills but denies any significant shortness of breath. She is not dizzy nor lightheaded. Related Data Previous Rx's Medication Instructions Recorded ondansetron 4 mg disintegrating 4 mg PO TID-QID PRN nausea and 07/25/23 tablet vomiting #10 tabs pantoprazole 40 mg tablet,delayed 40 mg PO DAILY #30 tabs 07/25/23 release (Protonix) Allergies Allergy/AdvReac Type Severity Reaction Status Date / Time bee pollen Allergy Severe Anaphylaxis Verified 10/02/22 20:18 kiwi Allergy Severe Anaphylaxis Verified 10/02/22 20:18 latex Allergy Mild Rash Verified 10/02/22 20:18 amitriptyline AdvReac Mild had really Verified 10/02/22 20:18 bad/unusual dreams morphine AdvReac Mild Heart Verified 10/02/22 20:18 starts thundering and I feel like I'm gonna oxycodone AdvReac Agitated Verified 10/02/22 20:18 Review of Systems Review of Systems Narrative: GENERAL: See HPI HEENT: Denies sinus pain, ear pain, sore throat, difficulty swallowing, dizziness. RESPIRATORY: See HPI CARDIOVASCULAR: Denies chest pain, palpitations, orthopnea, edema, GASTROINTESTINAL: See HPI : Denies dysuria, frequency, incontinence, hematuria, urinary retention. MUSCULOSKELETAL: denies weakness, joint pain, or bony pain SKIN: Denies rash, skin lesions, or other NEUROLOGIC: Denies weakness, headache, numbness, change in speech, confusion, seizures, incoordination. PSYCHIATRIC: No concerning psychosocial issues. 12 point review of systems is negative except for those stated above Patient History Medical History Hip pain, right Pelvic pain Edema Hypertension Preventive measure Anxiety Liver cyst Frequent UTI (~1999) Back pain with sciatica Surgical History H/O tooth extraction (~2017) History of delivery (~1992) History of appendectomy (~1983) Family History Father Cancer Diabetes mellitus Hypertension Hyperlipidemia Stroke Mother Heart disease COPD (chronic obstructive pulmonary disease) Social History household members: spouse and children Smoking Status: Never smoker alcohol intake: current substance use type: does not use Smoking Status: Never smoker alcohol intake frequency: a few times a month Substance Use Type: does not use Exam Narrative Exam Narrative: GENERAL: [57] year old patient appears stated age. Well-developed patient, in mild distress. HEAD: Atraumatic. Normocephalic. EYES: Pupils equal round and reactive. Extraocular motions intact. No scleral icterus. No injection or drainage. ENT: Nose without bleeding, purulent drainage. Throat without erythema, tonsillar hypertrophy or exudate. Airway patent. NECK: Trachea midline. Non tender CARDIOVASCULAR: Regular rate and rhythm without murmurs, gallops, or rubs. RESPIRATORY: Clear to auscultation. Breath sounds equal bilaterally. No wheezes, rales, or rhonchi. GASTROINTESTINAL: Abdomen soft, right upper quadrant pain, nondistended. EXTREMITIES: No edema or joint tenderness. BACK: Nontender without deformity or crepitance. No flank tenderness. NEURO: AOx3. SKIN: No rash or erythema of visible areas Initial Vital Signs Initial Vital Signs: Vital Signs Temperature 98.6 F 07/25/23 01:24 Pulse Rate 106 H 07/25/23 01:24 Respiratory Rate 20 07/25/23 01:24 Blood Pressure 155/96 H 07/25/23 01:24 Pulse Oximetry 97 07/25/23 01:24 Oxygen Delivery Method Room Air 07/25/23 01:24 Course Orders Ordered: ED Orders 07/25/23 01:32 EKG-12 Lead Stat 07/25/23 01:34 Complete Blood Count AUTO DIFF Stat Comprehensive Metabolic Panel Stat Lipase Stat 07/25/23 01:44 US abdomen limited Stat Ondansetron HCl (Ondansetron 4 Mg Odt) 4 mg PO NOW PRN PRN Reason: Nausea And Vomiting Ondansetron HCl (Ondansetron 4 Mg/2 Ml Inj) 4 mg IV NOW PRN PRN Reason: Nausea And Vomiting Discontinued Medications Hydrocodone Bitart/Acetaminophen (Hydrocodone/Acet 5/325 Prepack) 1 bottle MISC SEEINSTR ONE Stop: 07/25/23 03:15 Last Admin: 07/25/23 03:29 Dose: 1 bottle Sodium Chloride (Normal Saline 0.9%) 1,000 mls @ 1,000 mls/hr IV BOLUS ONE Stop: 07/25/23 02:34 Last Infusion: 07/25/23 02:42 Dose: Infused Ondansetron HCl (Ondansetron 4 Mg Odt Prepack) 1 bottle MISC SEEINSTR ONE Stop: 07/25/23 03:15 Last Admin: 07/25/23 03:29 Dose: 1 bottle Vital Signs Vital signs: Vital Signs - 8 hr 07/25/23 01:24 07/25/23 01:30 07/25/23 01:30 Temperature 98.6 F Pulse Rate 106 H 97 H Respiratory Rate 20 Blood Pressure 155/96 H 156/86 H Pulse Oximetry 97 97 Oxygen Delivery Method Room Air Room Air 07/25/23 02:00 07/25/23 02:00 07/25/23 02:30 Temperature Pulse Rate 91 H 86 Respiratory Rate Blood Pressure 168/85 H Pulse Oximetry 99 99 Oxygen Delivery Method Room Air 07/25/23 02:30 07/25/23 03:00 07/25/23 03:00 Temperature Pulse Rate 82 Respiratory Rate Blood Pressure 153/70 H 155/82 H Pulse Oximetry 97 Oxygen Delivery Method Room Air Medical Decision Making Lab Data 07/25/23 01:34 07/25/23 01:34 Labs: Lab Results 07/25/23 Range/Units 01:34 WBC 7.0 (4.5-11.0) X10^3/uL RBC 4.84 (4.0-5.2) X10^6/uL Hgb 13.6 (12.0-16.0) g/dL Hct 40.3 (36-46) % MCV 83.3 (80-100) fL MCH 28.1 (26-34) PG MCHC 33.7 (30-36) % RDW 13.7 (11.6-14.8) % Plt Count 201 (150-400) X10^3/uL Neut % (Auto) 70.4 (50-75) % Lymph % (Auto) 22.7 L (25-40) % Green % (Auto) 5.8 (3-14) % Eos % (Auto) 0.3 L (2-4) % Baso % (Auto) 0.8 (0-2) % Neut # (Auto) 4900 (8968-7975) /uL Lymph # (Auto) 1600 (5447-8287) /uL [place] # (Auto) 400 (0-900) /uL Eos # (Auto) 0 (0-450) /uL Baso # (Auto) 100 (0-100) /uL Sodium 135 L (137-145) mmol/L Potassium 3.9 (3.4-5.1) mmol/L Chloride 105 (98-107) mmol/L Carbon Dioxide 21 L (22-32) mmol/L BUN 7 (7-17) mg/dL Creatinine 0.91 (0.52-1.04) mg/dL Estimated GFR > 60 (>60) mL/min BUN/Creatinine Ratio 7.7 (6-22) Glucose 124 H (70-100) mg/dL Calcium 9.4 (8.4-10.2) mg/dL Total Bilirubin 1.3 (0.2-1.3) mg/dL AST 26 (14-36) IU/L ALT 15 (<35) IU/L Alkaline Phosphatase 60 (38-126) U/L Total Protein 7.9 (6.3-8.2) g/dL Albumin 4.2 (3.5-5.0) g/dL Globulin 3.7 (1.7-4.1) g/dL Albumin/Globulin Ratio 1.1 (1.0-2.8) Lipase 56 (23-300) U/L [facility] Narrative Medical decision making narrative: [57] year old patient presents with nausea, vomiting and right upper quadrant pain Multiple etiologies for patient's symptoms considered including, but not limited to: [Gallbladder disease versus pancreatitis versus COVID versus bowel obstruction versus other] Prior Charts reviewed in our EMR Primary Historian: patient Labs reviewed and interpreted by myself: No significant abnormalities requiring specific or immediate intervention Imaging reviewed: No gallbladder disease Patient's history and physical exam are reassuring, multiple diagnoses considered as noted above. Symptoms tremendously improved after fluids, Zofran and Protonix. She is tolerating orals, pain is controlled. Labs are unremarkable and ultrasound shows no significant findings. We did discuss the potential of performing a CT of the abdomen and pelvis but agree that it is unlikely that there is currently a significant diagnosis that would require surgical intervention. We discussed risks and benefits performing further studies and agree to hold off for now. Patient will employed a clear liquid diet for the next day or 2 and has been given prescriptions as noted below. Patient's symptoms improved over duration of stay with above-stated therapies. Findings and discharge diagnosis discussed with patient/family followed by verbalization of understanding Return precautions discussed with patient/family whom verbalize understanding of diagnosis and plan Discharge Plan Departure Patient Disposition: Home Clinical Impression: COVID, Vomiting Instructions: DI for Vomiting -- Adult Activity Restrictions/Additional Instructions: *You have been diagnosed with [abdominal pain] * As we discussed your history and physical exam as well as labs and imaging are very reassuring. There is no evidence of any severe diagnoses that would require a specific or immediate intervention. *What to do: *Please continue to take your regular medications as directed. [x ] New medication prescriptions sent to your pharmacy: [ [facility]] *Please follow up with your primary care provider in 2-3 days, call for an appointment. Let them know you were seen in the Emergency Department and that we ask that you be seen in follow up. We will electronically transmit a record of today's note if your PCP is in our system *Please consider a clear liquid diet for the next 24-48 hours and then slowly advance to regular as tolerated. Also, try to avoid alcohol, nicotine, caffeine, spicy, acidic or fatty foods as this may worsen your symptoms *If you do not have a primary care provider please contact the [facility] Resource line at [phone]. They will ask some questions about your medical history and help get you set up with a doctor in the community. *Return to Emergency Department if you should have any new, worsening or concerning symptoms, such as [fever greater than 101 F, shaking chills, worsening pain, persistent vomiting or other bothersome symptoms] Prescriptions: New pantoprazole [Protonix] 40 mg tablet,delayed release (DR/EC) 40 mg PO DAILY Qty: 30 0RF ondansetron 4 mg tablet,disintegrating 4 mg PO TID-QID PRN (Reason: nausea and vomiting) Qty: 10 0RF Referrals: Zain Alba DO [Primary Care Provider] - Stand Alone Forms: Patient Portal/API
[2023-07-25 01:30] VITALS: BP 156/86; PULSE 97; O2SAT 97
[2023-07-25] MEDS: SODIUM CHLORIDE 0.9% 1,000 ML 1000 ML IV (01:40)
--- NOTE | 2023-07-25 01:44 | DI.US.S_ITS ---
PROCEDURE: US ABDOMEN LIMITED INDICATIONS: RUQ pain, N/V TECHNIQUE: Real-time scanning was performed of the abdominal and retroperitoneal organs, with image documentation. COMPARISON: [facility], US, US ABDOMEN LIMITED, 08/09/2022, 15:11. FINDINGS: Liver: Minimally increased liver echogenicity, likely mild hepatic steatosis. Gallbladder: No nephrolithiasis. No wall thickening. Biliary ducts: Intrahepatic bile ducts are non-dilated. Extrahepatic bile duct caliber measures 3 mm. Normal is 6-7 mm or less in diameter, or 10 mm or less post-cholecystectomy. Pancreas: Visualized portions of the pancreas are sonographically normal. Miscellaneous: No free abdominal fluid. IMPRESSION: No visualized gallstones. No wall thickening. Agree with preliminary report. Dictated by: David Poe M.D. on 07/25/2023 at 8:11 Approved by: David Poe M.D. on 07/25/2023 at 8:12
[2023-07-25 01:46] LABS: Add Manual Diff / Slide Review NO; Basophils Absolute Auto 100 /uL (0-100); Basophils Percent Auto 0.8 % (0-2); Eosinophils Absolute Auto 0 /uL (0-450); Eosinophils Percent Auto 0.3 % (2-4); Hematocrit 40.3 % (36-46); Hemoglobin 13.6 g/dL (12.0-16.0); Lymphocytes Absolute Auto 1600 /uL (1100-4500); Lymphocytes Percent Auto 22.7 % (25-40); Mean Corpuscular HGB Conc 33.7 % (30-36); Mean Corpuscular Hemoglobin 28.1 PG (26-34); Mean Corpuscular Volume 83.3 fL (80-100); Monocytes Absolute Auto 400 /uL (0-900); Monocytes Percent Auto 5.8 % (3-14); Neutrophils Absolute Auto 4900 /uL (1500-7000); Neutrophils Percent Auto 70.4 % (50-75); Platelet Count 201 X10^3/uL (150-400); Red Blood Cell Count 4.84 X10^6/uL (4.0-5.2); Red Cell Distribution Width 13.7 % (11.6-14.8)
[2023-07-25 01:54] LABS: Alanine Aminotransferase 15 IU/L (<35); Albumin 4.2 g/dL (3.5-5.0); Albumin Globulin Ratio 1.1 (1.0-2.8); Alkaline Phosphatase 60 U/L (38-126); Aspartate Aminotransferase 26 IU/L (14-36); BUN Creatinine Ratio 7.7 (6-22); Bilirubin Total 1.3 mg/dL (0.2-1.3); Blood Urea Nitrogen 7 mg/dL (7-17); Calcium 9.4 mg/dL (8.4-10.2); Carbon Dioxide 21 mmol/L (22-32); Chloride 105 mmol/L (98-107); Estimated Glomerular Filt Rate > 60 mL/min (>60); Globulin 3.7 g/dL (1.7-4.1); Glucose 124 mg/dL (70-100); HEMOLYSIS 20 (0-50); Lipase 56 U/L (23-300); Potassium 3.9 mmol/L (3.4-5.1); Sodium 135 mmol/L (137-145); Total Protein 7.9 g/dL (6.3-8.2)
[2023-07-25 02:00] VITALS: BP 168/85; PULSE 91; O2SAT 99
[2023-07-25 02:30] VITALS: BP 153/70; PULSE 86; O2SAT 99
[2023-07-25 03:00] VITALS: BP 155/82; PULSE 82; O2SAT 97
[2023-07-25] MEDS: ONDANSETRON 4 MG ODT PREPACK 1 BOTTLE MISC (03:29)
[2023-07-25] MEDS: HYDROCODONE/ACET 5/325 PREPACK 1 BOTTLE MISC (03:29)
== END 2023-07-25 03:34 | disposition home or self-care (01) ==
PROVIDERS: Emergency Provider Emergency Medicine; PCP Family Medicine
DX: U07.1 COVID-19 (principal); R11.2 Nausea with vomiting, unspecified
CPT/HCPCS: 36415; 76705; 80053; 83690; 85025; 93005; 96360; 99284

== ENCOUNTER → 2023-09-16 11:00 | Outpatient (CLI) | payer OTHER, SELFPAY ==
--- NOTE | 2023-09-16 11:05 | DI.RAD.S_ITS ---
PROCEDURE: XR LUMBAR SPINE 2-3V INDICATIONS: LBP worse x 2 weeks bowel incontinence TECHNIQUE: 3 views of the lumbar spine were acquired. COMPARISON: [facility], CR, XR LUMBAR SPINE 2-3V, 11/07/2020, 9:08. FINDINGS: Bones: 5 [id number] vertebrae are present. There is normal bony alignment. No vertebral body compression fractures. No suspicious bony lesions. Degenerative changes including disc and foraminal narrowing most notable at L5-S1, unchanged. Soft tissues: Overlying bowel gas pattern is normal. No suspicious soft tissue calcifications. IMPRESSION: Stable appearance of early degenerative change at L5-S1. Dictated by: Luci Cordova M.D. on 09/16/2023 at 15:56 Approved by: Luci Cordova M.D. on 09/16/2023 at 15:57
[2023-09-16 13:06] LABS: Add Manual Diff / Slide Review NO; Basophils Absolute Auto 100 /uL (0-100); Basophils Percent Auto 1.4 % (0-2); Eosinophils Absolute Auto 1000 /uL (0-450); Eosinophils Percent Auto 12.6 % (2-4); Hemoglobin 13.2 g/dL (12.0-16.0); Lymphocytes Absolute Auto 5200 /uL (1100-4500); Lymphocytes Percent Auto 64.6 % (25-40); Mean Corpuscular HGB Conc 33.1 % (30-36); Mean Corpuscular Hemoglobin 28.1 PG (26-34); Mean Corpuscular Volume 84.7 fL (80-100); Monocytes Absolute Auto 300 /uL (0-900); Monocytes Percent Auto 4.1 % (3-14); Neutrophils Absolute Auto 1400 /uL (1500-7000); Neutrophils Percent Auto 17.3 % (50-75); Platelet Count 226 X10^3/uL (150-400); Red Blood Cell Count 4.72 X10^6/uL (4.0-5.2); Red Cell Distribution Width 14.2 % (11.6-14.8); White Blood Cell Count 8.1 X10^3/uL (4.5-11.0)
[2023-09-16 13:38] LABS: Alanine Aminotransferase 14 IU/L (<35); Albumin Globulin Ratio 1.4 (1.0-2.8); Alkaline Phosphatase 62 U/L (38-126); Aspartate Aminotransferase 28 IU/L (14-36); BUN Creatinine Ratio 8.5 (6-22); Blood Urea Nitrogen 8 mg/dL (7-17); Calcium 9.6 mg/dL (8.4-10.2); Carbon Dioxide 22 mmol/L (22-32); Chloride 108 mmol/L (98-107); Estimated Glomerular Filt Rate > 60 mL/min (>60); Globulin 2.8 g/dL (1.7-4.1); Glucose 87 mg/dL (70-100); HEMOLYSIS < 15 (0-50); Sodium 138 mmol/L (137-145); Total Protein 6.8 g/dL (6.3-8.2)
[2023-09-16 13:48] LABS: Hemoglobin A1C% w Est Avg Glu 5.1 % (4.0-6.0)
[2023-09-16 14:02] LABS: Vitamin B12 211 pg/mL (239-931)
== END ==
PROVIDERS: Physician Assistant; PCP Family Medicine; Referring Provider Family Medicine; Visit Provider Family Medicine
DX: G62.9 Polyneuropathy, unspecified (principal); R19.4 Change in bowel habit; R15.9 Full incontinence of feces; R73.9 Hyperglycemia, unspecified
CPT/HCPCS: 36415; 72100; 80053; 82607; 83036; 84443; 85025

== ENCOUNTER 2023-11-21 13:20 | Emergency (ER) | payer OTHER, SELFPAY ==
[2023-11-21] VITALS (12 sets, daily range): BP systolic 161–199; BP diastolic 89–122; PULSE 80–96; RESP 16; TEMP 36.2; O2SAT 93–100; BMI 30.1
--- NOTE | 2023-11-21 14:03 | ED.SKABFB ---
HPI - Skin/Abscess/Foreign Bdy General Chief complaint: Skin/Abscess/Foreign Body Stated complaint: thinks she has something stuck in throat Time Seen by Provider: 11/21/23 13:56 Source: patient Mode of arrival: Ambulatory History of Present Illness HPI narrative: Patient is a 58-year-old female. A longstanding history of reflux disease. Over the past several months/year she has had increasing issues with swallowing and feeling like things are getting stuck in her throat. Last evening she was eating a cake pop that had a coffee nevarez on it. After eating and she felt like the coffee nevarez was stuck in the right upper portion of her throat. A couple months ago she thought that a piece of a cookie was stuck in this exact area and her symptoms resolved after approximately 1 week. No problems breathing. States it is painful for her to swallow. Related Data Previous Rx's Medication Instructions Recorded gabapentin 300 mg capsule 300 mg PO BEDTIME #30 caps 09/16/23 sucralfate 100 mg/mL oral 10 ml PO QACHS #414 mL 11/21/23 suspension (Carafate) Allergies Allergy/AdvReac Type Severity Reaction Status Date / Time bee pollen Allergy Severe Anaphylaxis Verified 11/21/23 13:36 kiwi Allergy Severe Anaphylaxis Verified 11/21/23 13:36 latex Allergy Mild Rash Verified 11/21/23 13:36 amitriptyline AdvReac Mild had really Verified 11/21/23 13:36 bad/unusual dreams morphine AdvReac Mild Heart Verified 11/21/23 13:36 starts thundering and I feel like I'm gonna oxycodone AdvReac Agitated Verified 11/21/23 13:36 Review of Systems Constitutional Constitutional: Reports system reviewed and no additional complaints, except as documented ENT Ears, Nose, Mouth, and Throat: Reports system reviewed and no additional complaints, except as documented Integumentary/Breasts Skin/Breast: Reports system reviewed and no additional complaints, except as documented Neurologic Neurologic: Reports system reviewed and no additional complaints, except as documented Hematologic/Lymphatic On Anticoagulants: No Patient History Medical History COVID Hip pain, right Pelvic pain Edema Hypertension Preventive measure Anxiety Liver cyst Frequent UTI (~1999) Back pain with sciatica Surgical History H/O tooth extraction (~2017) History of delivery (~1992) History of appendectomy (~1983) Family History Father Cancer Diabetes mellitus Hypertension Hyperlipidemia Stroke Mother Heart disease COPD (chronic obstructive pulmonary disease) Social History household members: spouse and children Smoking Status: Never smoker alcohol intake: current substance use type: does not use Smoking Status: Never smoker alcohol intake frequency: a few times a month Substance Use Type: does not use Exam Initial Vital Signs Initial Vital Signs: Vital Signs Temperature 97.1 F L 11/21/23 13:25 Pulse Rate 96 H 11/21/23 13:25 Respiratory Rate 16 11/21/23 13:25 Blood Pressure 190/109 H 11/21/23 13:25 Pulse Oximetry 100 11/21/23 13:25 Oxygen Delivery Method Room Air 11/21/23 13:25 HENMT Teeth and gingiva: other (Missing all of her teeth) Throat: posterior oropharynx normal Neck Neck: full ROM, trachea midline and No lymphadenopathy Resp Effort & Inspection: normal respiratory effort Auscultation: clear to auscultation bilaterally Skin General: no rashes or lesions noted Neuro General: patient alert, patient awake and moves all extremities Extrem General: normal to inspection and capillary refill normal Course Orders Ordered: Discontinued Medications Al Hydrox/Mg Hydrox/Simethicone 20 ml/ Lidocaine HCl 15 ml 0 ml PO NOW ONE Stop: 11/21/23 14:04 Last Admin: 11/21/23 14:21 Dose: 35 ml Documented By: SPF Vital Signs Vital signs: Vital Signs - 8 hr 11/21/23 13:25 11/21/23 13:49 11/21/23 13:50 Temperature 97.1 F L Pulse Rate 96 H Respiratory Rate 16 Blood Pressure 190/109 H 193/122 H Pulse Oximetry 100 93 Oxygen Delivery Method Room Air 11/21/23 13:50 11/21/23 13:55 11/21/23 14:00 Temperature Pulse Rate 92 H 87 93 H Respiratory Rate Blood Pressure Pulse Oximetry 100 100 100 Oxygen Delivery Method 11/21/23 14:00 11/21/23 14:05 11/21/23 14:30 Temperature Pulse Rate 92 H 94 H Respiratory Rate Blood Pressure 196/116 H Pulse Oximetry 100 100 Oxygen Delivery Method 11/21/23 14:56 11/21/23 14:56 11/21/23 15:00 Temperature Pulse Rate 80 80 Respiratory Rate Blood Pressure 194/89 H Pulse Oximetry 99 100 Oxygen Delivery Method Room Air Room Air MDM - Skin/Abscess/Foreign Bdy MDM Narrative Medical decision making narrative: Some improvement after the GI cocktail. She has not vomiting. No respiratory distress. I have higher suspicion that this is just a abrasion to her esophagus rather than a retained foreign body. I discuss this with her. She has had longstanding issues with reflux in his had issues with esophageal motility in the past. She has never had an endoscopy. We discussed the importance of following up with general surgery in order have an endoscopy. Has no indication for admission to the hospital or emergent endoscopy as she is tolerating her secretions, tolerating liquids and no respiratory distress. Will discharge patient home with Carafate as this will soothe her esophagus and also help with any reflux issues. She was given return precautions. She expressed understanding and agreement. Discharge Plan Departure Patient Disposition: Home Clinical Impression: Throat pain Instructions: DI for Gastroesophageal Reflux Disease (GERD) Activity Restrictions/Additional Instructions: It is important that you follow-up with general surgery as you do need a upper endoscopy because of the issues that she had been having with swallowing. Use the Carafate/sucralfate like we discussed. Return to the emergency department for new or worsening symptoms. Prescriptions: New sucralfate [Carafate] 100 mg/mL suspension 10 ml PO QACHS Qty: 414 2RF No Action gabapentin 300 mg capsule 300 mg PO BEDTIME Qty: 30 3RF Referrals: Johny Guaman MD [Physician] - Zain Alba DO [Primary Care Provider] - Stand Alone Forms: Patient Portal/API
[2023-11-21] MEDS: MAG HYDROX/ALUMINUM/SIMETH SUS 20 ML, LIDOCAINE VISCOUS 2% 15 ML PO (14:21)
--- NOTE | 2023-11-21 15:00 | PC.NURSE ---
Pt reports her throat and mouth feel numbed after medications (see MAR). Pt still has the feeling of a lump in her right throat which is persistent.
== END 2023-11-21 15:46 | disposition home or self-care (01) ==
PROVIDERS: Emergency Provider Emergency Medicine; PCP Family Medicine
DX: R07.0 Pain in throat (principal)
CPT/HCPCS: 99283

== ENCOUNTER 2023-12-17 11:19 | Day surgery (SDC) | payer OTHER, SELFPAY ==
[2023-12-17 11:42] VITALS: BMI 27.9
[2023-12-17 11:49] VITALS: BP 163/97; PULSE 84; RESP 18; TEMP 36.3; O2SAT 100
[2023-12-17] MEDS: LACTATED RINGERS 1,000 ML 42 ML IV (11:53)
--- NOTE | 2023-12-17 12:26 | PM.PREOP ---
Pre-operative Note COVID-19 COVID-19 status: Not tested Interval Note History & Physical reviewed/Exam performed by Physician: Yes Changes to H&P: No ASA Class (for procedural sedation): II
[2023-12-17 13:05] VITALS: BP 134/79; PULSE 82; RESP 15; TEMP 36.6; O2SAT 99
--- NOTE | 2023-12-17 13:08 | PM.OP.EC ---
Operative Date/Time/Diagnoses Date of procedure: 12/17/23 Time of procedure: 13:08 Pre-op diagnosis: Dysphagia and colon cancer screening Post-op diagnosis: same Procedure & Clinicians Study performed: EGD (aborted) and colonoscopy Same procedure as scheduled: Yes Surgeon: Johny Guaman Procedure Notes Procedure in detail: Surgeon: Johny Guaman MD Anesthesia: Maribel Villareal RECORDS MANAGEMENT ASSISTANT Procedure in detail: A timeout was performed. A bite blocked was placed and monitors were attached to the patient. The patient was positioned in the left lateral decubitus position. Sedation was administered. Once the patient was sedated the endoscope was inserted through the bite block and passed into the upper esophagus. There was a flap of tissue that appeared to be nearly occluding the upper esophagus. It was quite friable and bled easily. The scope could not be safely advanced past the flap of tissue. EGD findings: Flap of tissue in the upper esophagus Next we repositioned the patient for a colonoscopy. A digital rectal exam was performed and was normal. The colonoscope was inserted and advanced to the cecum. The appendiceal orifice was identified and photographed. The scope was slowly withdrawn over greater than 6 minutes. No abnormalities were found. The scope was retroflexed in the rectum and no abnormalities were seen. Colonoscopy findings: Normal colon Total procedural EBL: 5 mL Scope withdrawal time: 16 minutes Sedation minutes: 20 minutes Post-procedure Recommendations: Colonscopy in 10 years Disposition: PACU
[2023-12-17 13:10] VITALS: BP 147/104; PULSE 73; RESP 12; O2SAT 98
[2023-12-17 13:17] VITALS: BP 147/91; PULSE 61; RESP 18; TEMP 36.4; O2SAT 99
--- NOTE | 2023-12-17 13:32 | SUR.OPER ---
Attempted EGD but had to abort at 12:44. Colonoscopy completed.
== END 2023-12-17 13:35 | disposition home or self-care (01) ==
PROVIDERS: PCP Family Medicine; Referring Provider Surgery; Visit Provider Surgery
PROC: 0DJ08ZZ Inspection of Upper Intestinal Tract, Via Natural or Artificial Opening Endoscopic (ICD-10-PCS; CPT 43235; principal; 2023-12-17 12:30)
PROC: 0DJD8ZZ Inspection of Lower Intestinal Tract, Via Natural or Artificial Opening Endoscopic (ICD-10-PCS; CPT 45378; 2023-12-17 12:30)
DX: Z12.11 Encounter for screening for malignant neoplasm of colon (principal); R13.10 Dysphagia, unspecified; Z53.09 Procedure and treatment not carried out because of other contraindication
CPT/HCPCS: 45378; 43235; J2704

== ENCOUNTER 2023-12-19 17:29 | Emergency (ER) | payer OTHER, SELFPAY ==
[2023-12-19 17:46] VITALS: BP 196/97; PULSE 72; RESP 18; TEMP 36.3; O2SAT 97; BMI 27.9
[2023-12-19] MEDS: KETOROLAC 30 MG/ML VIAL 15 MG IV (18:17)
[2023-12-19] MEDS: ONDANSETRON 4 MG/2 ML INJ IV (18:17)
[2023-12-19 18:20] LABS: Add Manual Diff / Slide Review NO; Basophils Absolute Auto 0 /uL (0-100); Basophils Percent Auto 0.2 % (0-2); Eosinophils Absolute Auto 0 /uL (0-450); Eosinophils Percent Auto 0.1 % (2-4); Hematocrit 42.9 % (36-46); Hemoglobin 14.4 g/dL (12.0-16.0); Lymphocytes Absolute Auto 2700 /uL (1100-4500); Mean Corpuscular HGB Conc 33.5 % (30-36); Mean Corpuscular Hemoglobin 28.5 PG (26-34); Mean Corpuscular Volume 85.1 fL (80-100); Monocytes Absolute Auto 700 /uL (0-900); Monocytes Percent Auto 5.5 % (3-14); Neutrophils Absolute Auto 10000 /uL (1500-7000); Neutrophils Percent Auto 74.2 % (50-75); Platelet Count 249 X10^3/uL (150-400); Red Blood Cell Count 5.04 X10^6/uL (4.0-5.2); Red Cell Distribution Width 14.2 % (11.6-14.8); White Blood Cell Count 13.5 X10^3/uL (4.5-11.0)
[2023-12-19 18:46] LABS: Alanine Aminotransferase 14 IU/L (<35); Albumin 4.7 g/dL (3.5-5.0); Albumin Globulin Ratio 1.1 (1.0-2.8); Alkaline Phosphatase 63 U/L (38-126); Aspartate Aminotransferase 23 IU/L (14-36); Bilirubin Total 1.9 mg/dL (0.2-1.3); Blood Urea Nitrogen 16 mg/dL (7-17); Calcium 10.2 mg/dL (8.4-10.2); Carbon Dioxide 23 mmol/L (22-32); Chloride 109 mmol/L (98-107); Estimated Glomerular Filt Rate > 60 mL/min (>60); Globulin 4.1 g/dL (1.7-4.1); Glucose 118 mg/dL (70-100); HEMOLYSIS < 15 (0-50); Lipase 47 U/L (23-300); Potassium 3.4 mmol/L (3.4-5.1); Sodium 145 mmol/L (137-145); Total Protein 8.8 g/dL (6.3-8.2)
--- NOTE | 2023-12-19 19:07 | ED.ABDPAIN ---
HPI - Abdominal Pain General Chief Complaint: Abdominal Pain Stated Complaint: post surgical complications, vomiting, abd pain Time Seen by Provider: 12/19/23 18:13 Source: patient Mode of arrival: Ambulatory Limitations: no limitations History of Present Illness HPI narrative: 58-year-old female with known esophageal web, GERD who presents with complaint of nausea vomiting and abdominal and back pain status post EGD and colonoscopy on the 17 of December. Patient states no fevers. She does not describe any chest pain, shortness of breath. She states it looks like file in his area yellow. Patient states she has not had any diarrhea or really any bowel movement she states decreased flatus. She states pain seems to be more right upper quadrant. But hurts throughout. Little bit of flank pain bilaterally. Patient denies any urinary symptoms. Patient states she has had a prior mastectomy, . Was told she needs to have a barium swallow and follow up with a specialist for the webbing or changes in her esophagus. States no tobacco, rare alcohol, no recreational drugs. Accompanied by her son. EGD performed on 12/17/[address] Guaman that was stopped secondary to a flap of tissue appearing to nearly occludes the upper esophagus, scope was not advanced past this flap of tissue. Patient also had a colonoscopy at that time with no abnormalities. Related Data Previous Rx's Medication Instructions Recorded pantoprazole 20 mg tablet,delayed 20 mg PO DAILY #30 tabs 12/11/23 release sertraline 50 mg tablet 50 mg PO DAILY #30 tabs 12/11/23 cephalexin 500 mg capsule 500 mg PO Q6H #20 caps 12/19/23 ondansetron 4 mg disintegrating 4 mg PO Q6HR PRN nausea and 12/19/23 tablet vomiting #10 tabs Allergies Allergy/AdvReac Type Severity Reaction Status Date / Time bee pollen Allergy Severe Anaphylaxis Verified 12/11/23 16:04 kiwi Allergy Severe Anaphylaxis Verified 12/11/23 16:04 latex Allergy Mild Rash Verified 12/11/23 16:04 amitriptyline AdvReac Mild had really Verified 12/11/23 16:04 bad/unusual dreams morphine AdvReac Mild Heart Verified 12/11/23 16:04 starts thundering and I feel like I'm gonna oxycodone AdvReac Agitated Verified 12/11/23 16:04 Review of Systems Review of Systems ROS Unobtainable: All systems reviewed & are unremarkable except as noted in HPI and below Patient History Medical History COVID Hip pain, right Pelvic pain Edema Hypertension Preventive measure Anxiety Liver cyst Frequent UTI (~1999) Back pain with sciatica Surgical History H/O tooth extraction (~2017) History of delivery (~1992) History of appendectomy (~1983) Family History Father Cancer Diabetes mellitus Hypertension Hyperlipidemia Stroke Mother Heart disease COPD (chronic obstructive pulmonary disease) Social History household members: spouse and children Smoking Status: Never smoker alcohol intake: current substance use type: does not use Smoking Status: Never smoker alcohol intake frequency: a few times a month Substance Use Type: does not use Exam Narrative Exam Narrative: GENERAL: Alert and oriented x three, female in mild distress. HEENT: Head normocephalic, atraumatic, EOMI, pupils reactive, face symmetric, moist mucous membranes NECK: Supple, full range of motion CARDIOVASCULAR: Regular rate and rhythm without murmurs, rubs or gallops. No edema bilateral lower extremities. RESPIRATORY: Breath sounds equal bilaterally, no wheezes rales or rhonchi. ABDOMEN: Soft, generalized tenderness but greater in the right upper quadrant. Normoactive bowel sounds all 4 quadrants. No guarding or rebound, rigidity, no mass. : Mild Right CVA tenderness, no left cva tenderness. EXTREMITIES: Normal range of motion, no clubbing or edema. Neurovascularly intact NEUROLOGICAL: Cranial nerves II through XII grossly intact. Moving all extremities SKIN: Warm, dry, no petechiae, no rashes or lesions. Initial Vital Signs Initial Vital Signs: Vital Signs Temperature 97.4 F L 12/19/23 17:46 Pulse Rate 72 12/19/23 17:46 Respiratory Rate 18 12/19/23 17:46 Blood Pressure 196/97 H 12/19/23 17:46 Pulse Oximetry 97 12/19/23 17:46 Oxygen Delivery Method Room Air 12/19/23 17:46 Course Orders Ordered: Discontinued Medications Sodium Chloride (Normal Saline 0.9%) 1,000 mls @ 1,000 mls/hr IV BOLUS ONE Stop: 12/19/23 20:13 Last Infusion: 12/19/23 20:24 Dose: Infused Documented By: Admin: 12/19/23 19:24 Dose: 1,000 mls/hr Documented By: TANA Ketorolac Tromethamine (Ketorolac 30 Mg/Ml Vial) 15 mg IV NOW ONE Stop: 12/19/23 18:14 Last Admin: 12/19/23 18:17 Dose: 15 mg Documented By: BOO Ondansetron HCl (Ondansetron 4 Mg/2 Ml Inj) 4 mg IV NOW PRN PRN Reason: Nausea And Vomiting Last Admin: 12/19/23 18:17 Dose: 4 mg Documented By: BOO Ondansetron HCl (Ondansetron 4 Mg Odt) 4 mg PO NOW PRN PRN Reason: Nausea And Vomiting Ondansetron HCl (Ondansetron 4 Mg Odt Prepack) 1 bottle MISC DIRECTED ONE Stop: 12/19/23 21:20 Last Admin: 12/19/23 21:47 Dose: 1 bottle Documented By: TANA Vital Signs Vital signs: Vital Signs - 8 hr 12/19/23 20:45 12/19/23 22:25 Pulse Rate 71 76 Respiratory Rate 18 18 Blood Pressure 184/93 H 178/82 H Pulse Oximetry 100 99 Oxygen Delivery Method Room Air Room Air MDM - Abdominal Pain Lab Data 12/19/23 18:08 12/19/23 18:08 Labs: Lab Results 12/19/23 Range/Units 18:08 WBC 13.5 H (4.5-11.0) X10^3/uL RBC 5.04 (4.0-5.2) X10^6/uL Hgb 14.4 (12.0-16.0) g/dL Hct 42.9 (36-46) % MCV 85.1 (80-100) fL MCH 28.5 (26-34) PG MCHC 33.5 (30-36) % RDW 14.2 (11.6-14.8) % Plt Count 249 (150-400) X10^3/uL Neut % (Auto) 74.2 (50-75) % Lymph % (Auto) 20.0 L (25-40) % [place] % (Auto) 5.5 (3-14) % Eos % (Auto) 0.1 L (2-4) % Baso % (Auto) 0.2 (0-2) % Neut # (Auto) 50561 H (3208-9670) /uL Lymph # (Auto) 2700 (2486-5293) /uL [place] # (Auto) 700 (0-900) /uL Eos # (Auto) 0 (0-450) /uL Baso # (Auto) 0 (0-100) /uL Sodium 145 (137-145) mmol/L Potassium 3.4 (3.4-5.1) mmol/L Chloride 109 H (98-107) mmol/L Carbon Dioxide 23 (22-32) mmol/L BUN 16 (7-17) mg/dL Creatinine 0.80 (0.52-1.04) mg/dL Estimated GFR > 60 (>60) mL/min BUN/Creatinine Ratio 20.0 (6-22) Glucose 118 H (70-100) mg/dL Calcium 10.2 (8.4-10.2) mg/dL Total Bilirubin 1.9 H (0.2-1.3) mg/dL AST 23 (14-36) IU/L ALT 14 (<35) IU/L Alkaline Phosphatase 63 (38-126) U/L Total Protein 8.8 H (6.3-8.2) g/dL Albumin 4.7 (3.5-5.0) g/dL Globulin 4.1 (1.7-4.1) g/dL Albumin/Globulin Ratio 1.1 (1.0-2.8) Lipase 47 (23-300) U/L Point of care testing: Urine Dip Bedside Urine Glucose Negative Bedside Urine Bilirubin ++ 2 Bedside Urine Ketone +++ 80 Urine Specific [place] 1.030 Bedside Urine Occult Blood +/- Bedside Urine pH 5.5 Bedside Urine Protein ++ 100 Bedside Urine Urobilinogen +/- 1mg Bedside Urine Nitrite + Positive Bedside Urine Leukocytes + [address] scan - abdomen/pelvis: Radiologist's Impression: Close Chest/Abdomen/Pelvis CT (Signed) Thomas Galloway - 12/19/[address] [address] [address] Scan Report Signed Patient: Janna Gar MR#: [id number] : 1965 Acct:[id number] Age/Sex: 58 / F Date of Service: 12/19/23 Loc: ED Accession Number: [id number] Procedure: CT chest abd pel w con Ordering Provider: Roxann Marion D.O. PROCEDURE: CT CHEST ABD PEL W CON INDICATIONS: abd/flank pain s/p EGD and colonscopy, vomiting TECHNIQUE: After the administration of intravenous contrast, 5 mm thick sections acquired from the lung apices to the symphysis. 5 mm coronal and sagittal reformats were performed, with additional 7 mm MIP reformats through the lungs. For radiation dose reduction, the following was used: automated exposure control, adjustment of mA and/or kV according to patient size. COMPARISON: [facility], , CT ABDOMEN/PELVIS WITHOUT CONTRAST, 02/07/2020, 14:54. FINDINGS: Image quality: Excellent. CHEST: Lower Neck: No enlarged lymph nodes. Thyroid: No thyroid nodules which require sonographic follow up, per consensus guidelines. Axillae: No enlarged lymph nodes. Chest Wall: Unremarkable. Lungs and Pleura: No pneumothorax or pleural effusions. Mild biapical pleuroparenchymal scarring. No focal pulmonary consolidations. No suspicious pulmonary nodules. Heart: Heart size is normal. No pericardial effusion. Thoracic Vessels: The aorta and pulmonary arteries demonstrate normal size. Mediastinum and Kitty: Prominent upper mediastinal lymph node measuring 9 mm (2/11). Prominent right hilar lymph node measuring 9 mm (2/27). Esophagus: Mild wall thickening in the proximal esophagus with debris. No hiatal hernia. ABDOMEN: Liver: No solid mass. Multiple hepatic cysts are redemonstrated. Subcentimeter hypodensities, too small technique characterize and favored to represent additional simple cysts. Gallbladder: No radiopaque gallstones or wall thickening. Biliary ducts: No biliary dilation. Pancreas: No ductal dilation. Spleen: Size is within normal limits. Adrenal Glands: No adrenal nodules. Kidneys and Ureters: No hydronephrosis. No solid mass. No complex renal cystic lesion which requires follow up. Subcentimeter hypodensity in the left kidney, too small to accurately characterize. Stomach and Bowel: Normal colonic caliber, without significant wall thickening. Appendix is not definitely seen, however there are no inflammatory changes within the right lower quadrant. Peritoneum: No abnormal intraperitoneal fluid. No free air. Ventral Wall: No significant ventral hernia. Abdominal Nodes: No retroperitoneal or mesenteric adenopathy by size criteria. Vessels: Aorta and inferior vena cava are normal in size. PELVIS: Pelvic Organs: Unremarkable. Bladder: No bladder wall thickening, accounting for underdistention. Pelvic Nodes: No enlarged lymph nodes. Miscellaneous: No inguinal hernias are seen. Bones: No aggressive osseous abnormality. Mild degenerative changes of the spine. IMPRESSION: 1. Mild wall thickening of the proximal esophagus with debris, may be reactive from EGD, recommend correlation with EGD findings. The remainder of the soft gaseous and stomach appear grossly within normal limits. 2. Prominent right hilar and upper mediastinal lymph node measuring 9 mm each are nonspecific and may be reactive. 3. Otherwise, no acute findings within chest, abdomen or pelvis. Dictated by: Thomas Galloway M.D. on 12/19/2023 at 20:40 Approved by: Thomas Galloway M.D. on 12/19/2023 at 20:52 [facility] Narrative Medical decision making narrative: [age] female with known esophageal web or flap, patient has had a vomiting with yellow emesis for the past 4 hours. She states decreased output without flatus. Somewhat obstructive like symptoms status post EGD and colonoscopy. No blood. Pain is more in the abdomen more right upper quadrant but somewhat throughout little bit her back as well. Patient is hypertensive afebrile, normal oxygen as pulse. Patient has a white count of 13 normal hemoglobin, platelets. Electrolytes shows chloride of 109, normal electrolytes, normal renal function glucose is 118. Bilirubin is 1.9 but otherwise normal LFTs with an AST 23 ALT 14 alk-phos of 63 and a lipase of 47. Urine nitrate positive. Positive for leukocyte esterase. CT chest abdomen pelvis she has had upper and lower scope at the same time. CT shows mild thickening esophagus with debris maybe reactive from EGD correlate with the EGD findings remainder appears grossly within normal limits. Prominent right hilar and upper mediastinal lymph node measuring 9 mm non respective maybe reactive no acute findings otherwise. Patient received fluids, Zofran and Toradol. Patient feels improved. No additional vomiting. Discussed findings with patient she has follow-up in place. Patient felt appropriate for discharge but is to return if having persistent vomiting. Was given a prepack of Zofran. Discharge Plan Departure Patient Disposition: Home Clinical Impression: Vomiting, History of esophagogastroduodenoscopy (EGD), S/P colonoscopy Activity Restrictions/Additional Instructions: Your imaging findings some thickening of the proximal esophagus this maybe reactive from the EGD, there was changes seen on your direct visualization. Follow up for your barium imaging and follow-up with GI. Your urine does show possible UTI, take antibiotics until completed. You may take Zofran 1 tablet every 6 hours as needed. Prescription sent to [facility] in [place]. Please return for new or worsening symptoms, vomiting blood, worsening abdominal back or flank pain, persistent black or bloody stools or other new or concerning changes. Prescriptions: New cephalexin 500 mg capsule 500 mg PO Q6H Qty: 20 0RF ondansetron 4 mg tablet,disintegrating 4 mg PO Q6HR PRN (Reason: nausea and vomiting) Qty: 10 0RF No Action sertraline 50 mg tablet 50 mg PO DAILY Qty: 30 2RF pantoprazole 20 mg tablet,delayed release (DR/EC) 20 mg PO DAILY Qty: 30 2RF Referrals: Zain Alba DO [Primary Care Provider] - Stand Alone Forms: Patient Portal/API, Against Medical Advice
--- NOTE | 2023-12-19 19:14 | DI.CT.S_ITS ---
PROCEDURE: CT CHEST ABD PEL W CON INDICATIONS: abd/flank pain s/p EGD and colonscopy, vomiting TECHNIQUE: After the administration of intravenous contrast, 5 mm thick sections acquired from the lung apices to the symphysis. 5 mm coronal and sagittal reformats were performed, with additional 7 mm MIP reformats through the lungs. For radiation dose reduction, the following was used: automated exposure control, adjustment of mA and/or kV according to patient size. COMPARISON: [facility], RG, CT ABDOMEN/PELVIS WITHOUT CONTRAST, 02/07/2020, 14:54. FINDINGS: Image quality: Excellent. CHEST: Lower Neck: No enlarged lymph nodes. Thyroid: No thyroid nodules which require sonographic follow up, per consensus guidelines. Axillae: No enlarged lymph nodes. Chest Wall: Unremarkable. Lungs and Pleura: No pneumothorax or pleural effusions. Mild biapical pleuroparenchymal scarring. No focal pulmonary consolidations. No suspicious pulmonary nodules. Heart: Heart size is normal. No pericardial effusion. Thoracic Vessels: The aorta and pulmonary arteries demonstrate normal size. Mediastinum and Kitty: Prominent upper mediastinal lymph node measuring 9 mm (2/11). Prominent right hilar lymph node measuring 9 mm (2/27). Esophagus: Mild wall thickening in the proximal esophagus with debris. No hiatal hernia. ABDOMEN: Liver: No solid mass. Multiple hepatic cysts are redemonstrated. Subcentimeter hypodensities, too small technique characterize and favored to represent additional simple cysts. Gallbladder: No radiopaque gallstones or wall thickening. Biliary ducts: No biliary dilation. Pancreas: No ductal dilation. Spleen: Size is within normal limits. Adrenal Glands: No adrenal nodules. Kidneys and Ureters: No hydronephrosis. No solid mass. No complex renal cystic lesion which requires follow up. Subcentimeter hypodensity in the left kidney, too small to accurately characterize. Stomach and Bowel: Normal colonic caliber, without significant wall thickening. Appendix is not definitely seen, however there are no inflammatory changes within the right lower quadrant. Peritoneum: No abnormal intraperitoneal fluid. No free air. Ventral Wall: No significant ventral hernia. Abdominal Nodes: No retroperitoneal or mesenteric adenopathy by size criteria. Vessels: Aorta and inferior vena cava are normal in size. PELVIS: Pelvic Organs: Unremarkable. Bladder: No bladder wall thickening, accounting for underdistention. Pelvic Nodes: No enlarged lymph nodes. Miscellaneous: No inguinal hernias are seen. Bones: No aggressive osseous abnormality. Mild degenerative changes of the spine. IMPRESSION: 1. Mild wall thickening of the proximal esophagus with debris, may be reactive from EGD, recommend correlation with EGD findings. The remainder of the soft gaseous and stomach appear grossly within normal limits. 2. Prominent right hilar and upper mediastinal lymph node measuring 9 mm each are nonspecific and may be reactive. 3. Otherwise, no acute findings within chest, abdomen or pelvis. Dictated by: Thomas Galloway M.D. on 12/19/2023 at 20:40 Approved by: Thomas Galloway M.D. on 12/19/2023 at 20:52
[2023-12-19] MEDS: SODIUM CHLORIDE 0.9% 1,000 ML 1000 ML IV (19:24)
[2023-12-19 20:45] VITALS: BP 184/93; PULSE 71; RESP 18; O2SAT 100
[2023-12-19] MEDS: ONDANSETRON 4 MG ODT PREPACK 1 BOTTLE MISC (21:47)
[2023-12-19 22:25] VITALS: BP 178/82; PULSE 76; RESP 18; O2SAT 99
== END 2023-12-19 22:26 | disposition home or self-care (01) ==
PROVIDERS: Emergency Medicine; Emergency Provider Emergency Medicine; PCP Family Medicine
DX: R11.10 Vomiting, unspecified (principal); R10.11 Right upper quadrant pain; Z98.890 Other specified postprocedural states
CPT/HCPCS: 36415; 71260; 74177; 80053; 81003; 83690; 85025; 93005; 96361; 96374; 96375; 99284; J1885; J2405; Q9967

== ENCOUNTER → 2023-12-29 09:39 | Outpatient (CLI) | payer OTHER, SELFPAY ==
--- NOTE | 2023-12-29 10:30 | DI.RAD.S_ITS ---
PROCEDURE: FL BARIUM SWALLOW INDICATIONS: upper esophageal web vs flap of tissue COMPARISON: None. FINDINGS: Function: There is normal esophageal peristalsis. No elicited gastroesophageal reflux. There is normal transit of a calibrated barium tablet through the esophagus into the stomach. Morphology: Air-contrast images demonstrate normal mucosal morphology. In the upper intrathoracic section of the esophagus, there is a focal outpouching measuring approximately 1.7 x 0.7 cm. Limited images of the stomach demonstrate normal appearance. IMPRESSION: Suspected diverticulum at the upper intrathoracic section of the esophagus measuring approximately 1.7 x 0.7 cm. Dictated by: David Poe M.D. on 12/29/2023 at 12:05 Approved by: David Poe M.D. on 12/29/2023 at 12:07
== END ==
LOC: RAD 09:40
PROVIDERS: PCP Family Medicine; Referring Provider Surgery; Visit Provider Surgery
DX: R13.13 Dysphagia, pharyngeal phase (principal)
CPT/HCPCS: 74220

== ENCOUNTER → 2024-07-20 06:40 | Outpatient (CLI) | payer OTHER, SELFPAY ==
--- NOTE | 2024-07-20 06:41 | DI.MG.S_ITS ---
BILATERAL DIGITAL SCREENING MAMMOGRAM 3D/2D WITH CAD: 07/20/2024 CLINICAL: Baseline exam. Routine screening. Family history of breast cancer. No prior exams were available for comparison. The breasts are almost entirely fatty (category a/<25% glandular tissue). Current study was also evaluated with a Computer Aided Detection (CAD) system. No significant masses, calcifications, or other findings are seen in either breast. IMPRESSION: NEGATIVE There is no mammographic evidence of malignancy. A 1 year screening mammogram is recommended. Based on the Tyrer Cuzick model (a risk assessment model) the patient's lifetime risk is 10.5% and her 10 year risk is 3.4%. According to the ACR, ACS, and NCCN guidelines, an annual breast MRI exam along with mammogram is recommended if the patient's lifetime risk is 20% or greater. This exam was interpreted at Station ID: [id number]. NOTE: For mammograms, a report in lay terms will be sent to the patient. Approximately 15% of breast malignancies will not be visualized mammographically. In the management of a palpable breast mass, a negative mammogram must not discourage biopsy of a clinically suspicious lesion. Electronically Signed By: Jamison [email or web address]:07/20/2024 12:27:37 letter sent: Normal Exam ACR BI-RADS Category 1: Negative
== END ==
PROVIDERS: PCP Family Medicine; Referring Provider Family Medicine; Visit Provider Family Medicine
DX: Z12.31 Encounter for screening mammogram for malignant neoplasm of breast (principal); Z80.3 Family history of malignant neoplasm of breast; R92.313 Mammographic fatty tissue density, bilateral breasts
CPT/HCPCS: 77063; 77067

== ENCOUNTER 2024-11-30 14:42 | Emergency (ER) | payer OTHER, SELFPAY ==
[2024-11-30 15:15] VITALS: BP 197/108; PULSE 83; RESP 16; TEMP 36.9; O2SAT 100; BMI 28.7
--- NOTE | 2024-11-30 15:57 | PC.NURSE ---
Pt was supposed to check in for out patient ultrasound. LWBS in order to accoplish that.
== END 2024-11-30 15:59 | disposition left against medical advice (07) ==
PROVIDERS: Emergency Provider Emergency Medicine; PCP Family Medicine
DX: M79.605 Pain in left leg (principal)
CPT/HCPCS: 73610; 73630; 93971; 99281

== ENCOUNTER → 2024-11-30 16:16 | Outpatient (CLI) | payer OTHER, SELFPAY ==
--- NOTE | 2024-11-30 16:18 | DI.US.S_ITS ---
PROCEDURE: US PERIPH VENOUS LOW EXTREM LT INDICATIONS: Left foot pain; left calf pain with swelling TECHNIQUE: Real-time imaging, as well as color and pulse Doppler interrogation, were performed of the lower extremity deep veins from the inguinal ligament to the popliteal fossa, with documentation of the visualized calf veins. COMPARISON: None. FINDINGS: The common femoral, femoral, popliteal, and the visualized calf veins are normally compressible, and free of intraluminal thrombus. Color and pulse Doppler demonstrate normal phasic intraluminal flow. There is normal augmentation response to distal compression maneuver. IMPRESSION: No findings of lower extremity deep venous thrombosis. Dictated by: Oswald Davis M.D. on 11/30/2024 at 15:48 Approved by: Oswald Davis M.D. on 11/30/2024 at 15:49
--- NOTE | 2024-11-30 16:18 | DI.RAD.S_ITS ---
PROCEDURE: XR FOOT LT 2V INDICATIONS: Left foot pain TECHNIQUE: 3 views of the foot were acquired. COMPARISON: [facility], CR, XR ANKLE LT MIN 3V, 11/30/2024, 16:34. FINDINGS: Bones: No fractures or dislocations. No suspicious bony lesions. Soft tissues: No tibiotalar joint effusion. Achilles tendon appears normal. IMPRESSION: No visualized acute fracture or dislocation. However, if clinical concern and/or pain persist, short interval imaging followup in 7-10 days is recommended, as occult injury cannot be definitively excluded. Dictated by: Luci Cordova M.D. on 11/30/2024 at 16:56 Approved by: Luci Cordova M.D. on 11/30/2024 at 16:57
--- NOTE | 2024-11-30 16:48 | DI.RAD.S_ITS ---
PROCEDURE: XR ANKLE LT MIN 3V INDICATIONS: ANKLE PAIN AND SWELLING TECHNIQUE: 3 views of the ankle were acquired. COMPARISON: None. FINDINGS: Bones: No fractures or dislocations. Ankle mortise is normally aligned. No suspicious bony lesions. Soft tissues: No tibiotalar joint effusion. Achilles tendon appears normal. IMPRESSION: No visualized acute fracture or dislocation. However, if clinical concern and/or pain persist, short interval imaging followup in 7-10 days is recommended, as occult injury cannot be definitively excluded. Dictated by: Luci Cordova M.D. on 11/30/2024 at 16:56 Approved by: Luci Cordova M.D. on 11/30/2024 at 16:56
== END ==
PROVIDERS: PCP Family Medicine; Referring Provider Physician Assistant Surgical; Visit Provider Physician Assistant Surgical
DX: M79.662 Pain in left lower leg (principal); M79.89 Other specified soft tissue disorders
CPT/HCPCS: 73610; 73630; 93971

== ENCOUNTER 2025-07-22 10:55 | Emergency (ER) | payer SELFPAY ==
[2025-07-22 11:04] VITALS: BP 195/114; PULSE 97; RESP 17; TEMP 36.6; O2SAT 98; BMI 29.9
--- NOTE | 2025-07-22 11:12 | DI.RAD.S_ITS ---
PROCEDURE: XR FOOT RT MIN 3V INDICATIONS: injury TECHNIQUE: 3 views of the foot were acquired. COMPARISON: [facility], CR, XR ANKLE RT MIN 3V, 07/22/2025, 11:18. [facility], CR, XR FOOT LT 2V, 11/30/2024, 16:34. FINDINGS: This study is limited by poor quality, perhaps related to underpenetration. Bones: No fractures or dislocations. No suspicious bony lesions. Generalized degenerative changes are seen. Soft tissues: No tibiotalar joint effusion. Achilles tendon appears normal. IMPRESSION: Multifocal degenerative changes are seen, without an acute abnormality of the foot. Dictated by: Oswald Davis M.D. on 07/22/2025 at 11:09 Approved by: Oswald Davis M.D. on 07/22/2025 at 11:11
--- NOTE | 2025-07-22 11:12 | DI.RAD.S_ITS ---
PROCEDURE: XR ANKLE RT MIN 3V INDICATIONS: injury TECHNIQUE: 3 views of the ankle were acquired. COMPARISON: [facility], CR, XR ANKLE LT MIN 3V, 11/30/2024, 16:34. FINDINGS: Bones: Acute transverse fractures through tip of lateral malleolus is seen. Slight distal displacement at fracture site is also noted. Age indeterminate deformity is also seen involving tip of medial malleolus. No other fracture or dislocation. Ankle mortise is normally aligned. No suspicious bony lesions. Soft tissues: Mild ankle soft tissue swelling. Achilles tendon is intact. IMPRESSION: 1. Acute appearing minimally displaced fracture through tip of lateral malleolus. Age indeterminate deformity involving tip of medial malleolus. No other fracture or dislocation. 2. Mild ankle soft tissue swelling. Dictated by: Derick Santo M.D. on 07/22/2025 at 11:47 Approved by: Derick Santo M.D. on 07/22/2025 at 11:49
--- NOTE | 2025-07-22 11:28 | ED.LOWEXIN ---
HPI - Extremity Injury (Lower) General Chief Complaint: Extremity Injury, Lower Stated Complaint: Rt foot injured after falling in ditch Time Seen by Provider: 07/22/25 11:06 Source: patient Mode of arrival: Ambulatory History of Present Illness HPI Narrative: Ms. Gar is a pleasant 59-year-old female with a past medical history of hypertension, not on medication, GERD who presents to the emergency department for right foot and ankle pain x 3 days. Patient states on Friday she was walking when she rolled her right ankle and a ditch. She did not sustain any other injuries, no head strike. She is now having significant pain on the lateral aspect of the right ankle and the right foot making it difficult for her to walk. She has been using a walker. No numbness tingling or open wounds. No blood thinner use. Patient is noted to have a very elevated blood pressure, states that her blood pressure is always high because she does not like doctors and she has a stressful job, she currently does not have health insurance and does not have a PCP and is not taking any medications. She denies chest pain, shortness of breath, dizziness. Related Data Previous Rx's ?Medication ?Instructions ?Recorded pantoprazole 20 mg tablet,delayed 20 mg PO DAILY #30 tabs 10/25/24 release hydrocodone 5 mg-acetaminophen 325 1 tab PO Q4-6H PRN pain #12 tabs 07/22/25 mg tablet Allergies Allergy/AdvReac Type Severity Reaction Status Date / Time bee pollen Allergy Severe Anaphylaxis Verified 07/22/25 11:05 kiwi Allergy Severe Anaphylaxis Verified 07/22/25 11:05 latex Allergy Mild Rash Verified 07/22/25 11:05 amitriptyline AdvReac Mild had really Verified 07/22/25 11:05 bad/unusual dreams morphine AdvReac Mild Heart Verified 07/22/25 11:05 starts thundering and I feel like I'm gonna oxycodone AdvReac Agitated Verified 07/22/25 11:05 Review of Systems Review of Systems ROS Unobtainable: All systems reviewed & are unremarkable except as noted in HPI and below Patient History Medical History COVID Hip pain, right Pelvic pain Edema Hypertension Preventive measure Anxiety Liver cyst Frequent UTI (~1999) Back pain with sciatica Surgical History H/O tooth extraction (~2017) History of delivery (~1992) History of appendectomy (~1983) Family History Father Cancer Diabetes mellitus Hypertension Hyperlipidemia Stroke Mother Heart disease COPD (chronic obstructive pulmonary disease) Social History household members: spouse and children Smoking Status: Never smoker alcohol intake: current substance use type: does not use Smoking Status: Never smoker alcohol intake frequency: a few times a month Exam Narrative Exam Narrative: GENERAL: 59 year old patient appears older than stated age. Overweight patient, in no acute distress. HEAD: Atraumatic. Normocephalic. EYES: \No scleral icterus. No injection or drainage. NECK: Trachea midline. Cervical ROM intact. CARDIOVASCULAR: Regular rate RESPIRATORY: ?Nonlabored respirations. ?Speaking in clear, full sentences. ? EXTREMITIES: RIGHT lower extremity: Patient has tenderness to palpation of the lateral foot and ankle with even light touch. There is mild edema on the lateral aspect of the foot and ankle, no wounds or ecchymosis. Range of motion very minimal secondary to pain. No tenderness to palpation of the right knee, proximal fibula or tibia. Brisk cap refill on both toes, 1+ DP pulses bilaterally. No erythema or increased warmth bilaterally. Sensation intact to light touch on both the plantar and dorsal aspect of the feet. NEURO: AOx3. ?Clear speech. ? SKIN: No rash or erythema of visible areas Initial Vital Signs Initial Vital Signs: Vital Signs Temperature 98 F 07/22/25 11:04 Pulse Rate 97 H 07/22/25 11:04 Respiratory Rate 17 07/22/25 11:04 Blood Pressure 195/114 H 07/22/25 11:04 Pulse Oximetry 98 07/22/25 11:04 Oxygen Delivery Method Room Air 07/22/25 11:04 Procedures Orthopedic Splinting/Casting Injury #1: Time of procedure: 13:25 Side: right Lower Extremity Injury Location: ankle Lower Extremity Immobilizer: posterior splint and stirrup splint Other Orthopedic Equipment: crutches Post splinting neuro exam: intact and no change Post splinting vascular exam: no change Placed by: Nursing (Nurse Ute and myself) Course Orders Ordered: Discontinued Medications Hydrocodone Bitart/Acetaminophen (Hydrocodone/Acet 5/325 Tablet) 1 tab PO NOW ONE Stop: 07/22/25 11:24 Last Admin: 07/22/25 11:41 Dose: 1 tab Documented By: NORMA Vital Signs Vital signs: Vital Signs - 8 hr 07/22/25 11:04 07/22/25 12:36 Temperature 98 F Pulse Rate 97 H Respiratory Rate 17 Blood Pressure 195/114 H 197/91 H Pulse Oximetry 98 Oxygen Delivery Method Room Air MDM - Extremity Injury (Lower) Medical Records Attestation: I reviewed the patient's medical records. Lab Data 07/22/25 11:40 07/22/25 11:40 Labs: Lab Results 07/22/25 Range/Units 11:40 WBC 10.4 (4.5-11.0) X10^3/uL RBC 4.72 (4.0-5.2) X10^6/uL Hgb 13.0 (12.0-16.0) g/dL Hct 40.0 (36-46) % MCV 84.7 (80-100) fL MCH 27.6 (26-34) PG MCHC 32.6 (30-36) % RDW 14.2 (11.6-14.8) % Plt Count 242 (150-400) X10^3/uL Neut % (Auto) 34.0 L (50-75) % Lymph % (Auto) 51.1 H (25-40) % Kidder % (Auto) 5.1 (3-14) % Eos % (Auto) 8.8 H (2-4) % Baso % (Auto) 1.0 (0-2) % Neut # (Auto) 3500 (7176-2890) /uL Lymph # (Auto) 5300 H (5866-9360) /uL Kidder # (Auto) 500 (0-900) /uL Eos # (Auto) 900 H (0-450) /uL Baso # (Auto) 100 (0-100) /uL Sodium 142 (137-145) mmol/L Potassium 4.0 (3.4-5.1) mmol/L Chloride 111 H (98-107) mmol/L Carbon Dioxide 21 L (22-32) mmol/L BUN 11 (7-17) mg/dL Creatinine 0.92 (0.52-1.04) mg/dL Estimated GFR > 60 (>60) mL/min BUN/Creatinine Ratio 12.0 (6-22) Glucose 100 H (70-99) mg/dL Calcium 9.2 (8.4-10.2) mg/dL Total Bilirubin 0.7 (0.2-1.3) mg/dL AST 34 (14-36) IU/L ALT 18 (<35) IU/L Alkaline Phosphatase 65 (38-126) U/L Total Protein 7.5 (6.3-8.2) g/dL Albumin 4.3 (3.5-5.0) g/dL Globulin 3.2 (1.7-4.1) g/dL Albumin/Globulin Ratio 1.3 (1.0-2.8) Imaging Data Right Ankle XR: Radiologist's Impression: PROCEDURE: XR ANKLE RT MIN 3V INDICATIONS: injury TECHNIQUE: 3 views of the ankle were acquired. COMPARISON: [facility], , XR ANKLE LT MIN 3V, 11/30/2024, 16:34. FINDINGS: Bones: Acute transverse fractures through tip of lateral malleolus is seen. Slight distal displacement at fracture site is also noted. Age indeterminate deformity is also seen involving tip of medial malleolus. No other fracture or dislocation. Ankle mortise is normally aligned. No suspicious bony lesions. Soft tissues: Mild ankle soft tissue swelling. Achilles tendon is intact. IMPRESSION: 1. Acute appearing minimally displaced fracture through tip of lateral malleolus. Age indeterminate deformity involving tip of medial malleolus. No other fracture or dislocation. 2. Mild ankle soft tissue swelling. Dictated by: Derick Santo M.D. on 07/22/2025 at 11:47 Approved by: Derick Santo M.D. on 07/22/2025 at 11:49 Right Foot XR: Radiologist's Impression: PROCEDURE: XR FOOT RT MIN 3V INDICATIONS: injury TECHNIQUE: 3 views of the foot were acquired. COMPARISON: [facility], CR, XR ANKLE RT MIN 3V, 07/22/2025, 11:18. [facility], , XR FOOT LT 2V, 11/30/2024, 16:34. FINDINGS: This study is limited by poor quality, perhaps related to underpenetration. Bones: No fractures or dislocations. No suspicious bony lesions. Generalized degenerative changes are seen. Soft tissues: No tibiotalar joint effusion. Achilles tendon appears normal. IMPRESSION: Multifocal degenerative changes are seen, without an acute abnormality of the foot. Dictated by: Oswald Davis M.D. on 07/22/2025 at 11:09 Approved by: Oswald Davis M.D. on 07/22/2025 at 11:11 [facility] Narrative Medical decision making narrative: 59-year-old female with a past medical history of hypertension, not on medication, GERD who presents to the emergency department for right foot and ankle pain x 3 days. Differential diagnosis includes but is not limited to lateral ankle sprain, strain, fracture, dislocation, etc. On exam patient is in no acute distress, nontoxic appearing, vital signs reveal significantly elevated blood pressure 195/114. Her documented blood pressures have been significantly elevated dating back to even November of 2023. She has not take any medications, denies any chest pain, shortness of breath, dizziness or other symptoms besides her right ankle pain. She is tearful at the fact that she does not currently have health insurance or PCP. She has tenderness to even light palpation of the lateral right foot and ankle, she is neurovascularly intact. No knee pain or tenderness to palpation. We will obtain x-ray right foot and ankle, treat pain with hydrocodone as patient states this has worked for her in the past, we will check baseline CBC and CMP given her significant asymptomatic hypertension, have [employer] meet with patient. Right ankle x-ray reveals acute appearing minimally displaced fracture through the tip of the lateral malleolus, age indeterminate deformity involving the tip of the medial malleolus. No other fracture dislocation. Mild ankle soft tissue swelling. Right foot x-ray reveals multifocal degenerative changes without acute abnormality. Labs reveal normal WBC count 10.4, hemoglobin 13.0 hematocrit 40.0. Sodium 142, potassium 4.0, BUN 11 creatinine 0.92. Normal LFTs. Printed discussed imaging results with the patient. Because she has tenderness on both the lateral and medial malleolus, we will place into posterior short-leg splint with stirrup, nonweightbearing, rice therapy, follow up with Orthopedics. Discussed risks of narcotic pain medications. Discussed strict ER follow up. I did recommend the patient takes her blood pressure daily, discussed lifestyle modifications, and prompt follow up with PCP for further blood pressure management however because patient is experiencing an acutely painful condition, and I will be starting her on pain medication, we will hold off on initiating antihypertensives at this time. Patient tolerated application of posterior short-leg splint with stirrup well. She is neurovascularly intact both before and after the application of splint. All of her questions were answered, she is stable for discharge home with her DIL. Discharge Plan Departure Patient Disposition: Home Clinical Impression: Elevated blood pressure reading Ankle fracture, right Qualifiers: Encounter type: initial encounter Fracture type: closed Qualified Code(s): S82.891A - Other fracture of right lower leg, initial encounter for closed fracture Fall from slip, trip, or stumble Qualifiers: Encounter type: initial encounter Qualified Code(s): W01.0XXA - Fall on same level from slipping, tripping and stumbling without subsequent striking against object, initial encounter Instructions: The DASH Diet, DI for Ankle Fracture, DI for High Blood Pressure, Lifestyle Habits May Lower Risk of Hypertension in Women Activity Restrictions/Additional Instructions: Dear Ms. Gar, Thank you for coming to the emergency department. Today you were evaluated for right foot and ankle pain. Your x-rays did reveal 2 broken bones in your ankle. You have been placed into a splint which is a temporary cast, please keep this dry, use crutches or scooter to keep weight off of the leg, and follow up with [facility] for further management. Please call the number listed below to schedule an appointment. Today your blood pressure was elevated. Please take your blood pressure at least 1 time a day or at a local pharmacy and write down these values with you to bring with you to your primary care's doctor's appointment. Return to the ER if you ever develop chest pain, shortness of breath or other concerns. Please use RICE therapy for your pain in addition to ibuprofen/acetaminophen. Rest the painful area. Ice the area of pain/swelling for at least 15 minutes, 4x a day. Compress the area of swelling using a brace, wrap, or splint if applied. Elevate the painful or swollen extremity by supporting it above the level of the heart with pillows when sitting or laying. Please take Ibuprofen (Motrin/Advil) or Acetaminophen (Tylenol) for pain. These are available over the counter. You may take Ibuprofen 600 mg every 8 hours with food for pain. You may also take Acetaminophen 650 mg every 4-6 hours for pain. Do not exceed 3000 mg of Tylenol a day as this can cause liver damage. Do not drink alcohol with either of these medications. You have been prescribed a short course of narcotic medications. These are potentially dangerous and addictive medications that should be used carefully. While on these medications you cannot drive or operate heavy machinery. Additionally, you cannot sign legal documents or perform any duties such as this. Many people get constipated on narcotic medications so it would be advisable to discuss stool softeners with the pharmacist when you pick and shovel man your prescription. Please understand that we cannot provide further refills of narcotics or controlled substances through the ED and your pain management will need to be through your Primary Care Provider Return to the emergency department immediately if you develop severe or worsening pain, significant swelling of the leg, redness, fevers, color change or any concerns. Please follow up with your primary care doctor within the next 2-3 days for ER follow-up. (If you do not have a PCP you can call [phone]. ?to schedule an appointment with an [facility] Primary Care Provider) IF YOU DEVELOP ANY NEW OR WORSENING SYMPTOMS, RETURN TO THE ER! Please read the attached instructions, they highlight more specific treatments and interventions for you at home. Thank you for letting me participate in your care, Jyoti Sarkar PA-C Prescriptions: New hydrocodone-acetaminophen 5-325 mg tablet 1 tab PO Q4-6H PRN (Reason: pain) Qty: 12 0RF No Action pantoprazole 20 mg tablet,delayed release (DR/EC) 20 mg PO DAILY Qty: 30 2RF Rx Instructions: bridge to pcp appt 2024 Referrals: Zain Alba DO [Primary Care Provider, Family Practice] Jaret Kwon MD [Physician, Orthopedic Surgery] Referral Note: R ankle fracture Stand Alone Forms: Patient Portal/API, Work Release Note
[2025-07-22 11:50] LABS: Add Manual Diff / Slide Review NO; Hematocrit 40.0 % (36-46); Hemoglobin 13.0 g/dL (12.0-16.0); Lymphocytes Absolute Auto 5300 /uL (1100-4500); Mean Corpuscular HGB Conc 32.6 % (30-36); Mean Corpuscular Hemoglobin 27.6 PG (26-34); Mean Corpuscular Volume 84.7 fL (80-100); Platelet Count 242 X10^3/uL (150-400)
[2025-07-22 12:02] LABS: Alanine Aminotransferase 18 IU/L (<35); Albumin 4.3 g/dL (3.5-5.0); Albumin Globulin Ratio 1.3 (1.0-2.8); Alkaline Phosphatase 65 U/L (38-126); Blood Urea Nitrogen 11 mg/dL (7-17); Calcium 9.2 mg/dL (8.4-10.2); Carbon Dioxide 21 mmol/L (22-32); Chloride 111 mmol/L (98-107); Estimated Glomerular Filt Rate > 60 mL/min (>60); Globulin 3.2 g/dL (1.7-4.1); Glucose 100 mg/dL (70-99); HEMOLYSIS < 15 (0-50); Potassium 4.0 mmol/L (3.4-5.1); Sodium 142 mmol/L (137-145); Total Protein 7.5 g/dL (6.3-8.2)
--- NOTE | 2025-07-22 12:07 | CM.SWNOTE ---
ED MEDICAL ADVISOR Note Patient is 59 y/o female who presents to ED due to concern for right foot and ankle pain, patient also presents with hypertension and has not had refills of rx. Patient's PCP is Zain Alba, patient last saw PCP in November 2023, patient denies current insurance as she just recently changed jobs and cannot afford the insurance her job offered her. MEDICAL ADVISOR enters room to meet with patient, patient endorses that she plans to apply for Medicaid and states she has been Medicaid insurance in the past. MEDICAL ADVISOR encourages patient to apply and encourages patient to contact patient accounts for after she is active with Medicaid. MEDICAL ADVISOR encourages patient to reach out to PCP once established with insurance as well. MEDICAL ADVISOR provides patient with Medicaid contact information and brochure for applying for Medicaid. Registration provides patient with rajan care packet as well. Patient denies any needs at this time, patient presents as grateful for this information provided. Plan: patient likely to d/c to home upon medical clearance with needed rx refills, patient to f/u with Medicaid application and f/u with PCP. JACOB Desir
[2025-07-22 12:36] VITALS: BP 197/91
== END 2025-07-22 13:45 | disposition home or self-care (01) ==
PROVIDERS: Emergency Provider Physician Assistant; PCP Family Medicine
DX: S82.891A Other fracture of right lower leg, initial encounter for closed fracture (principal); W01.0XXA Fall on same level from slipping, tripping and stumbling without subsequent striking against object, initial encounter; I10 Essential (primary) hypertension
CPT/HCPCS: 29515; 73610; 73630; 80053; 85025; 99283; 99284

== ENCOUNTER 2025-08-18 14:51 | Emergency (ER) | payer OTHER, SELFPAY ==
[2025-08-18] VITALS (17 sets, daily range): BP systolic 167–205; BP diastolic 83–104; PULSE 85–127; RESP 13–22; TEMP 36.5; O2SAT 97–100; BMI 29.9
[2025-08-18 15:50] LABS: Add Manual Diff / Slide Review NO; Hematocrit 41.0 % (36-46); Hemoglobin 13.9 g/dL (12.0-16.0); Lymphocytes Absolute Auto 6200 /uL (1100-4500); Mean Corpuscular HGB Conc 33.9 % (30-36); Mean Corpuscular Hemoglobin 28.0 PG (26-34); Mean Corpuscular Volume 82.5 fL (80-100); Platelet Count 204 X10^3/uL (150-400)
--- NOTE | 2025-08-18 15:55 | ED.ABDPAIN ---
HPI - Abdominal Pain <Nam Madera MD - Last Filed: 08/25/25 07:02> General Chief Complaint: Abdominal Pain Stated Complaint: Gallbladder issues Time Seen by Provider: 08/18/25 15:25 Source: patient Mode of arrival: Ambulatory History of Present Illness HPI narrative: Patient here for right upper quadrant pain as well as left greater than right chest pain. Patient injured her ankle July 22 and has had decreased mobility. Has had to use her arms to push herself up from lying down or sitting. She has left-sided chest discomfort with movement of the left arm/pushing motion. Also tender left pectoris on palpation. Patient denies any history of heart attack strokes or diabetes. There is family history/mother with history of coronary disease. Patient states she has had appendectomy but still has her gallbladder. No prior history of blood clots in legs or lungs. Denies any calf pain or swelling. Patient is anxious. Tachycardia noted. As well as blood pressure. Related Data Previous Rx's ?Medication ?Instructions ?Recorded lisinopril 10 mg tablet 10 mg PO DAILY #14 tabs 08/18/25 pantoprazole 40 mg tablet,delayed 40 mg PO DAILY #14 tabs 08/18/25 release Allergies Allergy/AdvReac Type Severity Reaction Status Date / Time bee pollen Allergy Severe Anaphylaxis Verified 08/24/25 10:29 kiwi Allergy Severe Anaphylaxis Verified 08/24/25 10:29 latex Allergy Mild Rash Verified 08/24/25 10:29 amitriptyline AdvReac Mild had really Verified 08/24/25 10:29 bad/unusual dreams morphine AdvReac Mild Heart Verified 08/24/25 10:29 starts thundering and I feel like I'm gonna oxycodone AdvReac Agitated Verified 08/24/25 10:29 Review of Systems <Nam Madera MD - Last Filed: 08/25/25 07:02> Review of Systems Narrative: GENERAL: Negative chills, fatigue, malaise, fever, sweats. HEENT: Negative sinus pain, ear pain, sore throat RESPIRATORY: Negative dyspnea, cough CARDIOVASCULAR: Positive chest pain, palpitations GASTROINTESTINAL: Negative vomiting, nausea, positive abdominal pain : Negative dysuria, frequency, hematuria MUSCULOSKELETAL: Negative muscle or bony pain SKIN: Negative rash, skin lesions NEUROLOGIC: Negative weakness, numbness ROS Unobtainable: All systems reviewed & are unremarkable except as noted in HPI and below Patient History <Nam Madera MD - Last Filed: 08/25/25 07:02> Medical History COVID Hip pain, right Pelvic pain Edema Hypertension Preventive measure Anxiety Liver cyst Frequent UTI (~1999) Back pain with sciatica Surgical History H/O tooth extraction (~2017) History of delivery (~1992) History of appendectomy (~1983) Family History Father Cancer Diabetes mellitus Hypertension Hyperlipidemia Stroke Mother Heart disease COPD (chronic obstructive pulmonary disease) Social History household members: spouse and children Smoking Status: Never smoker alcohol intake: current substance use type: does not use Smoking Status: Never smoker alcohol intake frequency: a few times a month Exam <Nam Madera MD - Last Filed: 08/25/25 07:02> Narrative Exam Narrative: GENERAL: in no distress, not toxic not dyspneic HEAD: Normocephalic. EYES: Pupils equal round ENT: Mucous membranes moist. NECK: Trachea midline. CARDIOVASCULAR: Regular rate and rhythm RESPIRATORY: Clear to auscultation. Breath sounds equal bilaterally. No wheezes, rales, or rhonchi. Reproducible left pectoral chest tenderness on palpation and with exertion pushing with her left arm. GASTROINTESTINAL: Abdomen soft, reproducible right upper quadrant tenderness. Positive Sidhu's sign. No peritoneal signs. No guarding no rebound. Bowel sounds are present. BACK: No flank tenderness. EXTREMITIES: No gross deformities. NEURO: AOx4. Clear speech SKIN: Warm and dry PSYCH: Not anxious, is cooperative Initial Vital Signs Initial Vital Signs: Vital Signs Temperature 97.7 F 08/18/25 14:56 Pulse Rate 127 H 08/18/25 14:56 Respiratory Rate 20 08/18/25 14:56 Blood Pressure 193/93 H 08/18/25 14:56 Pulse Oximetry 99 08/18/25 14:56 Oxygen Delivery Method Room Air 08/18/25 14:56 <Royce Urena MD - Last Filed: 08/19/25 06:35> Initial Vital Signs Initial Vital Signs: Vital Signs Temperature 97.7 F 08/18/25 14:56 Pulse Rate 127 H 08/18/25 14:56 Respiratory Rate 20 08/18/25 14:56 Blood Pressure 193/93 H 08/18/25 14:56 Pulse Oximetry 99 08/18/25 14:56 Oxygen Delivery Method Room Air 08/18/25 14:56 Course <Nam Madera MD - Last Filed: 08/25/25 07:02> Orders Ordered: Discontinued Medications Al Hydrox/Mg Hydrox/Simethicone 20 ml/ Lidocaine HCl 15 ml 0 ml PO NOW ONE Stop: 08/18/25 18:13 Last Admin: 08/18/25 18:34 Dose: 35 ml Documented By: JAGRUTI Sodium Chloride (Normal Saline 0.9%) 1,000 mls @ 1,000 mls/hr IV BOLUS ONE Stop: 08/18/25 17:03 Last Infusion: 08/18/25 17:18 Dose: Infused Documented By: Admin: 08/18/25 16:15 Dose: 1,000 mls/hr Documented By: JAGRUTI Ketorolac Tromethamine (Ketorolac 30 Mg/Ml Vial) 15 mg IV NOW ONE Stop: 08/18/25 20:21 Last Admin: 08/18/25 20:36 Dose: 15 mg Documented By: IRASEMA Lisinopril (Lisinopril 10 Mg Tablet) 10 mg PO NOW ONE Stop: 08/18/25 18:13 Last Admin: 08/18/25 18:37 Dose: 10 mg Documented By: JAGRUTI Ondansetron HCl (Ondansetron 4 Mg/2 Ml Inj) 4 mg IV NOW PRN PRN Reason: Nausea And Vomiting Ondansetron HCl (Ondansetron 4 Mg Odt) 4 mg PO NOW PRN PRN Reason: Nausea And Vomiting Vital Signs Vital signs: Vital Signs - 8 hr 08/18/25 14:56 08/18/25 16:20 08/18/25 16:30 Temperature 97.7 F Pulse Rate 127 H 89 Respiratory Rate 20 19 Blood Pressure 193/93 H 190/104 H 186/95 H Pulse Oximetry 99 100 Oxygen Delivery Method Room Air Room Air 08/18/25 16:30 08/18/25 17:00 08/18/25 17:30 Temperature Pulse Rate 90 96 H 93 H Respiratory Rate 17 16 16 Blood Pressure Pulse Oximetry 100 100 100 Oxygen Delivery Method 08/18/25 17:31 08/18/25 17:31 Temperature Pulse Rate 95 H Respiratory Rate 16 Blood Pressure 205/98 H Pulse Oximetry 99 Oxygen Delivery Method <Royce Urena MD - Last Filed: 08/19/25 06:35> Orders Ordered: Discontinued Medications Al Hydrox/Mg Hydrox/Simethicone 20 ml/ Lidocaine HCl 15 ml 0 ml PO NOW ONE Stop: 08/18/25 18:13 Last Admin: 08/18/25 18:34 Dose: 35 ml Documented By: JAGRUTI Sodium Chloride (Normal Saline 0.9%) 1,000 mls @ 1,000 mls/hr IV BOLUS ONE Stop: 08/18/25 17:03 Last Infusion: 08/18/25 17:18 Dose: Infused Documented By: Admin: 08/18/25 16:15 Dose: 1,000 mls/hr Documented By: JAGRUTI Ketorolac Tromethamine (Ketorolac 30 Mg/Ml Vial) 15 mg IV NOW ONE Stop: 08/18/25 20:21 Last Admin: 08/18/25 20:36 Dose: 15 mg Documented By: IRASEMA Lisinopril (Lisinopril 10 Mg Tablet) 10 mg PO NOW ONE Stop: 08/18/25 18:13 Last Admin: 08/18/25 18:37 Dose: 10 mg Documented By: JAGRUTI Ondansetron HCl (Ondansetron 4 Mg/2 Ml Inj) 4 mg IV NOW PRN PRN Reason: Nausea And Vomiting Ondansetron HCl (Ondansetron 4 Mg Odt) 4 mg PO NOW PRN PRN Reason: Nausea And Vomiting Vital Signs Vital signs: Vital Signs - 8 hr 08/18/25 14:56 08/18/25 16:20 08/18/25 16:30 Temperature 97.7 F Pulse Rate 127 H 89 Respiratory Rate 20 19 Blood Pressure 193/93 H 190/104 H 186/95 H Pulse Oximetry 99 100 Oxygen Delivery Method Room Air Room Air 08/18/25 16:30 08/18/25 17:00 08/18/25 17:30 Temperature Pulse Rate 90 96 H 93 H Respiratory Rate 17 16 16 Blood Pressure Pulse Oximetry 100 100 100 Oxygen Delivery Method 08/18/25 17:31 08/18/25 17:31 Temperature Pulse Rate 95 H Respiratory Rate 16 Blood Pressure 205/98 H Pulse Oximetry 99 Oxygen Delivery Method MDM - Abdominal Pain <Nam Madera MD - Last Filed: 08/25/25 07:02> Lab Data 08/18/25 15:25 08/18/25 15:25 Labs: Lab Results 08/18/25 08/18/25 08/18/25 Range/Units 15:20 15:25 18:40 WBC 10.2 (4.5-11.0) X10^3/uL RBC 4.97 (4.0-5.2) X10^6/uL Hgb 13.9 (12.0-16.0) g/dL Hct 41.0 (36-46) % MCV 82.5 (80-100) fL MCH 28.0 (26-34) PG MCHC 33.9 (30-36) % RDW 13.9 (11.6-14.8) % Plt Count 204 (150-400) X10^3/uL Neut % (Auto) 30.1 L (50-75) % Lymph % (Auto) 60.5 H (25-40) % [place] % (Auto) 4.5 (3-14) % Eos % (Auto) 4.1 H (2-4) % Baso % (Auto) 0.8 (0-2) % Neut # (Auto) 3100 (3153-0401) /uL Lymph # (Auto) 6200 H (5289-4655) /uL [place] # (Auto) 500 (0-900) /uL Eos # (Auto) 400 (0-450) /uL Baso # (Auto) 100 (0-100) /uL Sodium 138 (137-145) mmol/L Potassium 3.6 (3.4-5.1) mmol/L Chloride 109 H (98-107) mmol/L Carbon Dioxide 20 L (22-32) mmol/L BUN 13 (7-17) mg/dL Creatinine 0.97 (0.52-1.04) mg/dL Estimated GFR > 60 (>60) mL/min BUN/Creatinine Ratio 13.4 (6-22) Glucose 113 H (70-99) mg/dL Calcium 9.8 (8.4-10.2) mg/dL Total Bilirubin 1.9 H (0.2-1.3) mg/dL AST 29 (14-36) IU/L ALT 18 (<35) IU/L Alkaline Phosphatase 63 (38-126) U/L Total Creatine Kinase 61 57 (30-135) U/L Troponin I < 0.012 < 0.012 (0.01-0.034) ng/mL Total Protein 7.7 (6.3-8.2) g/dL Albumin 4.4 (3.5-5.0) g/dL Globulin 3.3 (1.7-4.1) g/dL Albumin/Globulin Ratio 1.3 (1.0-2.8) Lipase 67 (23-300) U/L Urine Color Yellow Urine Appearance Clear Urine pH 6.0 (4.5-8.0) Ur Specific [place] 1.020 (1.000-1.035) Urine Protein Negative (Negative) Urine Glucose (UA) Negative (Negative) g/dL Urine Ketones 1+ H (NEGATIVE) Urine Occult Blood Trace-intact (Negative) Urine Nitrate Negative (Negative) Urine Bilirubin Negative (NEGATIVE) Urine Urobilinogen 1.0 (0.2) E.U./dL Ur Leukocyte Esterase Negative (NEGATIVE) Urine RBC 0-1/hpf (0-5/HPF) Urine WBC 1-5/hpf (0-5/HPF) Ur Squamous Epith Cells 1-5 /hpf (0-5/HPF) Urine Bacteria None seen (None) Ur Culture Indicated? Cult not indicated Vol Urine Centrifuged 10ml (spun) Imaging Data CT scan - chest: Radiologist's Impression: [place] [address] CT Scan Report Signed Patient: Janna Gar MR#: [id number] : 1965 Acct:[id number] Age/Sex: 59 / F Date of Service: 08/18/25 Loc: ED Accession Number: [id number] Procedure: CT angio chest PE protocol Ordering Provider: Nam Madera MD PROCEDURE: CT ANGIO CHEST PE PROTOCOL INDICATIONS: Chest pain/abdominal pain TECHNIQUE: After the administration of intravenous contrast, 2 mm thick sections acquired from the pulmonary apices to the posterior costophrenic angles. 3-dimensional maximum intensity projection (MIP) coronal and sagittal reformats were then acquired through the thorax. For radiation dose reduction, the following was used: automated exposure control, adjustment of mA and/or kV according to patient size. COMPARISON: [facility], CT, CT ABDOMEN PELVIS W CON, 08/18/2025, 16:52. FINDINGS: Image quality: Diagnostic. Pulmonary arteries: Pulmonary arteries are normal in size, and demonstrate no intraluminal filling defects to suggest central pulmonary embolism. Lower Neck: No enlarged lymph nodes. Thyroid: No thyroid nodules which require sonographic follow up, per consensus guidelines. Axillae: No enlarged lymph nodes. Chest Wall: Unremarkable. Bones: No suspicious osseous lesion. Lungs and Pleura: No pneumothorax or pleural effusions. No consolidation or suspicious nodules. Heart: Heart size is normal. No pericardial effusion. Thoracic Vessels: No aortic aneurysm. No dissection. Mediastinum and Kitty: No enlarged lymph nodes. Esophagus: No wall thickening. No hiatal hernia. Upper Abdomen: Visualized upper abdomen solid organs and bowel loops appear normal. Hepatic cysts. Dictated separately. IMPRESSION: 1. No pulmonary embolism. 2. No acute airspace opacity. Dictated by: Micah Jiménez M.D. on 08/18/2025 at 17:17 Approved by: Micah Jiménez M.D. on 08/18/2025 at 17:23 CT scan - abdomen/pelvis: Radiologist's Impression: [place] [address] CT Scan Report Signed Patient: Janna Gar MR#: [id number] : 1965 Acct:[id number] Age/Sex: 59 / F Date of Service: 08/18/25 Loc: ED Accession Number: [id number] Procedure: CT abdomen pelvis w con Ordering Provider: Nam Madera MD PROCEDURE: CT ABDOMEN PELVIS W CON INDICATIONS: Right-sided abdominal pain TECHNIQUE: After the administration of intravenous contrast, axial sections acquired from the lung bases to the pubic symphysis. Coronal and sagittal reformats were performed. For radiation dose reduction, the following was used: automated exposure control, adjustment of mA and/or kV according to patient size. COMPARISON: [facility], CT, CT CHEST ABD PEL W CON, 12/19/2023, 20:13. FINDINGS: Image quality: Diagnostic. Lower Chest: No significant findings. ABDOMEN: Liver: Multiple hepatic cysts. A larger cyst in segment 4 measuring 4.4 cm. Gallbladder: No radiopaque gallstones or wall thickening. Biliary ducts: No biliary dilation. Pancreas: No ductal dilation. Spleen: Size is within normal limits. Adrenal Glands: No adrenal nodules. Kidneys and Ureters: No hydronephrosis. No solid mass. No complex renal cystic lesion which requires follow up. Stomach and Bowel: Normal colonic caliber, without significant wall thickening. The appendix is not identified. Peritoneum: No abnormal intraperitoneal fluid. No free air. Small rim calcified nodule in the pelvis, (2/131), unchanged Ventral Wall: No significant ventral hernia. Abdominal Nodes: No retroperitoneal or mesenteric adenopathy by size criteria. Vessels: Aorta and inferior vena cava are normal in size. Portal vein is patent. PELVIS: Pelvic Organs: Anteverted uterus. Bladder: No bladder wall thickening. No stone. Pelvic Nodes: No enlarged lymph nodes. Miscellaneous: No inguinal hernias are seen. Bones: No aggressive osseous abnormality. IMPRESSION: No acute abnormality identified. No free fluid. Dictated by: Micah Jiménez M.D. on 08/18/2025 at 17:23 Approved by: Micah Jiménez M.D. on 08/18/2025 at 17:28 [facility] Narrative Medical decision making narrative: Patient here for right upper quadrant pain as well as left greater than right chest pain. Patient injured her ankle July 22 and has had decreased mobility. Has had to use her arms to push herself up from lying down or sitting. She has left-sided chest discomfort with movement of the left arm/pushing motion. Also tender left pectoris on palpation. Patient denies any history of heart attack strokes or diabetes. There is family history/mother with history of coronary disease. Patient states she has had appendectomy but still has her gallbladder. No prior history of blood clots in legs or lungs. Denies any calf pain or swelling. Patient is anxious. Tachycardia noted. As well as blood pressure. MDM After history and exam, CBC CMP lipase EKG troponin CT chest PE, CT abdomen pelvis normal saline Differential considered: Includes but not limited to cholelithiasis cholecystitis STEMI STEMI pulmonary embolism muscular strain of the chest Medical records reviewed: ER records here July 22 2025 Lab Test results independently reviewed as above. Pertinent findings: WBC 10.2 hemoglobin 13.9 sodium 138 potassium 3.6 GFR greater than 60 glucose 130 AST 29 ALT 18 troponin less than 0.012 Independently reviewed EKG normal sinus rhythm rate [address] elevation or depression Imaging studies independently reviewed: CT chest no acute finding CT abdomen pelvis no acute finding Consultations: None indicated at this time Re-evaluations: 6:15 p.m.. Updated patient results. Repeat troponin, GI cocktail count lisinopril is ordered. Blood pressure is noted. She is not on any blood pressure medication. Reviewed her likely left chest pain is muscular strain from her pushing herself up from seated position due to her recent ankle injury. Stressing and straining her left pectoris muscle. Discussion: 6:[address] Madera: Sign-out to Dr. Urena, repeat troponin is pending. Blood pressure medication has been ordered. Will need reassessment. GI cocktail ordered. Lisinopril ordered Diagnosis: unclear more likely gerd attack, all imaging did not display any acute findings. <Royce Urena MD - Last Filed: 08/19/25 06:35> Lab Data Labs: Lab Results 08/18/25 08/18/25 08/18/25 Range/Units 15:20 15:25 18:40 WBC 10.2 (4.5-11.0) X10^3/uL RBC 4.97 (4.0-5.2) X10^6/uL Hgb 13.9 (12.0-16.0) g/dL Hct 41.0 (36-46) % MCV 82.5 (80-100) fL MCH 28.0 (26-34) PG MCHC 33.9 (30-36) % RDW 13.9 (11.6-14.8) % Plt Count 204 (150-400) X10^3/uL Neut % (Auto) 30.1 L (50-75) % Lymph % (Auto) 60.5 H (25-40) % [place] % (Auto) 4.5 (3-14) % Eos % (Auto) 4.1 H (2-4) % Baso % (Auto) 0.8 (0-2) % Neut # (Auto) 3100 (1219-0201) /uL Lymph # (Auto) 6200 H (7634-3613) /uL [place] # (Auto) 500 (0-900) /uL Eos # (Auto) 400 (0-450) /uL Baso # (Auto) 100 (0-100) /uL Sodium 138 (137-145) mmol/L Potassium 3.6 (3.4-5.1) mmol/L Chloride 109 H (98-107) mmol/L Carbon Dioxide 20 L (22-32) mmol/L BUN 13 (7-17) mg/dL Creatinine 0.97 (0.52-1.04) mg/dL Estimated GFR > 60 (>60) mL/min BUN/Creatinine Ratio 13.4 (6-22) Glucose 113 H (70-99) mg/dL Calcium 9.8 (8.4-10.2) mg/dL Total Bilirubin 1.9 H (0.2-1.3) mg/dL AST 29 (14-36) IU/L ALT 18 (<35) IU/L Alkaline Phosphatase 63 (38-126) U/L Total Creatine Kinase 61 57 (30-135) U/L Troponin I < 0.012 < 0.012 (0.01-0.034) ng/mL Total Protein 7.7 (6.3-8.2) g/dL Albumin 4.4 (3.5-5.0) g/dL Globulin 3.3 (1.7-4.1) g/dL Albumin/Globulin Ratio 1.3 (1.0-2.8) Lipase 67 (23-300) U/L Urine Color Yellow Urine Appearance Clear Urine pH 6.0 (4.5-8.0) Ur Specific [place] 1.020 (1.000-1.035) Urine Protein Negative (Negative) Urine Glucose (UA) Negative (Negative) g/dL Urine Ketones 1+ H (NEGATIVE) Urine Occult Blood Trace-intact (Negative) Urine Nitrate Negative (Negative) Urine Bilirubin Negative (NEGATIVE) Urine Urobilinogen 1.0 (0.2) E.U./dL Ur Leukocyte Esterase Negative (NEGATIVE) Urine RBC 0-1/hpf (0-5/HPF) Urine WBC 1-5/hpf (0-5/HPF) Ur Squamous Epith Cells 1-5 /hpf (0-5/HPF) Urine Bacteria None seen (None) Ur Culture Indicated? Cult not indicated Vol Urine Centrifuged 10ml (spun) Imaging Data US - abdomen: Radiologist's Impression: 1. No cholelithiasis or biliary dilatation seen. 2. Redemonstration of multiple hepatic cysts. MDM Narrative Medical decision making narrative: Patient here for right upper quadrant pain as well as left greater than right chest pain. Patient injured her ankle July 22 and has had decreased mobility. Has had to use her arms to push herself up from lying down or sitting. She has left-sided chest discomfort with movement of the left arm/pushing motion. Also tender left pectoris on palpation. Patient denies any history of heart attack strokes or diabetes. There is family history/mother with history of coronary disease. Patient states she has had appendectomy but still has her gallbladder. No prior history of blood clots in legs or lungs. Denies any calf pain or swelling. Patient is anxious. Tachycardia noted. As well as blood pressure. MDM After history and exam, CBC CMP lipase EKG troponin CT chest PE, CT abdomen pelvis normal saline Differential considered: Includes but not limited to cholelithiasis cholecystitis STEMI STEMI pulmonary embolism muscular strain of the chest Medical records reviewed: ER records here July 22 2025 Lab Test results independently reviewed as above. Pertinent findings: WBC 10.2 hemoglobin 13.9 sodium 138 potassium 3.6 GFR greater than 60 glucose 130 AST 29 ALT 18 troponin less than 0.012 Independently reviewed EKG normal sinus rhythm rate [address] elevation or depression Imaging studies independently reviewed: CT chest no acute finding CT abdomen pelvis no acute finding Consultations: Re-evaluations: 6:15 p.m.. Updated patient results. Repeat troponin, GI cocktail count lisinopril is ordered. Blood pressure is noted. She is not on any blood pressure medication. Reviewed her likely left chest pain is muscular strain from her pushing herself up from seated position due to her recent ankle injury. Stressing and straining her left pectoris muscle. Discussion: 6:[address] Madera: Sign-out to Dr. Urena, repeat troponin is pending. Blood pressure medication has been ordered. Will need reassessment. GI cocktail ordered. Lisinopril ordered Diagnosis: unclear more likely gerd attack, all imaging did not display any acute findings. Discharge Plan Departure Patient Disposition: Home Clinical Impression: Abdominal pain Qualifiers: Abdominal location: right upper quadrant Qualified Code(s): R10.11 - Right upper quadrant pain GERD (gastroesophageal reflux disease) Qualifiers: Esophagitis presence: without esophagitis Qualified Code(s): K21.9 - Gastro-esophageal reflux disease without esophagitis Hypertension Qualifiers: Hypertension type: unspecified Qualified Code(s): I10 - Essential (primary) hypertension Instructions: Essential Hypertension, DI for Gastroesophageal Reflux Disease (GERD), DI for Abdominal Pain-Adult Activity Restrictions/Additional Instructions: Try the stronger dose of Protonix and start lisinopril daily. For the next 2 weeks. Go on a GERD diet. Avoid spicy or highly acidic foods. Follow up sooner if belly pain does not subside or worsens. Follow up with PCP to go over blood pressure issues. Prescriptions: New pantoprazole 40 mg tablet,delayed release (DR/EC) 40 mg PO DAILY Qty: 14 0RF lisinopril 10 mg tablet 10 mg PO DAILY Qty: 14 0RF Referrals: Zain Alba DO [Primary Care Provider, [facility]] Stand Alone Forms: Patient Portal/API
[2025-08-18 16:02] LABS: Alanine Aminotransferase 18 IU/L (<35); Albumin 4.4 g/dL (3.5-5.0); Albumin Globulin Ratio 1.3 (1.0-2.8); Alkaline Phosphatase 63 U/L (38-126); Blood Urea Nitrogen 13 mg/dL (7-17); Calcium 9.8 mg/dL (8.4-10.2); Carbon Dioxide 20 mmol/L (22-32); Chloride 109 mmol/L (98-107); Estimated Glomerular Filt Rate > 60 mL/min (>60); Globulin 3.3 g/dL (1.7-4.1); Glucose 113 mg/dL (70-99); HEMOLYSIS < 15 (0-50); Lipase 67 U/L (23-300); Potassium 3.6 mmol/L (3.4-5.1); Sodium 138 mmol/L (137-145); Total Protein 7.7 g/dL (6.3-8.2)
--- NOTE | 2025-08-18 16:02 | DI.CT.S_ITS ---
PROCEDURE: CT ANGIO CHEST PE PROTOCOL INDICATIONS: Chest pain/abdominal pain TECHNIQUE: After the administration of intravenous contrast, 2 mm thick sections acquired from the pulmonary apices to the posterior costophrenic angles. 3-dimensional maximum intensity projection (MIP) coronal and sagittal reformats were then acquired through the thorax. For radiation dose reduction, the following was used: automated exposure control, adjustment of mA and/or kV according to patient size. COMPARISON: [facility], CT, CT ABDOMEN PELVIS W CON, 08/18/2025, 16:52. FINDINGS: Image quality: Diagnostic. Pulmonary arteries: Pulmonary arteries are normal in size, and demonstrate no intraluminal filling defects to suggest central pulmonary embolism. Lower Neck: No enlarged lymph nodes. Thyroid: No thyroid nodules which require sonographic follow up, per consensus guidelines. Axillae: No enlarged lymph nodes. Chest Wall: Unremarkable. Bones: No suspicious osseous lesion. Lungs and Pleura: No pneumothorax or pleural effusions. No consolidation or suspicious nodules. Heart: Heart size is normal. No pericardial effusion. Thoracic Vessels: No aortic aneurysm. No dissection. Mediastinum and Kitty: No enlarged lymph nodes. Esophagus: No wall thickening. No hiatal hernia. Upper Abdomen: Visualized upper abdomen solid organs and bowel loops appear normal. Hepatic cysts. Dictated separately. IMPRESSION: 1. No pulmonary embolism. 2. No acute airspace opacity. Dictated by: Micah Jiménez M.D. on 08/18/2025 at 17:17 Approved by: Micah Jiménez M.D. on 08/18/2025 at 17:23
--- NOTE | 2025-08-18 16:02 | DI.CT.S_ITS ---
PROCEDURE: CT ABDOMEN PELVIS W CON INDICATIONS: Right-sided abdominal pain TECHNIQUE: After the administration of intravenous contrast, axial sections acquired from the lung bases to the pubic symphysis. Coronal and sagittal reformats were performed. For radiation dose reduction, the following was used: automated exposure control, adjustment of mA and/or kV according to patient size. COMPARISON: [facility], CT, CT CHEST ABD PEL W CON, 12/19/2023, 20:13. FINDINGS: Image quality: Diagnostic. Lower Chest: No significant findings. ABDOMEN: Liver: Multiple hepatic cysts. A larger cyst in segment 4 measuring 4.4 cm. Gallbladder: No radiopaque gallstones or wall thickening. Biliary ducts: No biliary dilation. Pancreas: No ductal dilation. Spleen: Size is within normal limits. Adrenal Glands: No adrenal nodules. Kidneys and Ureters: No hydronephrosis. No solid mass. No complex renal cystic lesion which requires follow up. Stomach and Bowel: Normal colonic caliber, without significant wall thickening. The appendix is not identified. Peritoneum: No abnormal intraperitoneal fluid. No free air. Small rim calcified nodule in the pelvis, (2/131), unchanged Ventral Wall: No significant ventral hernia. Abdominal Nodes: No retroperitoneal or mesenteric adenopathy by size criteria. Vessels: Aorta and inferior vena cava are normal in size. Portal vein is patent. PELVIS: Pelvic Organs: Anteverted uterus. Bladder: No bladder wall thickening. No stone. Pelvic Nodes: No enlarged lymph nodes. Miscellaneous: No inguinal hernias are seen. Bones: No aggressive osseous abnormality. IMPRESSION: No acute abnormality identified. No free fluid. Dictated by: Micah Jiménez M.D. on 08/18/2025 at 17:23 Approved by: Micah Jiménez M.D. on 08/18/2025 at 17:28
--- NOTE | 2025-08-18 16:05 | EKG_ITS ---
[address] [address] Test Date: 2025-08-18 Pat Name: Janna Gar Department: [facility] Room: Gender: Female [employer]: : [id number] Requested By: Order Number: [id number] Reading MD: Mesfin Fish MD Measurements Intervals [place] Rate: 99 P: 41 AL: 146 QRS: 24 QRSD: 80 T: 49 QT: 352 QTc: 451 Interpretive Statements Normal sinus rhythm Electronically Signed On 08-28-2025 9:00:27 PST by Mesfin Fish MD
[2025-08-18] MEDS: SODIUM CHLORIDE 0.9% 1,000 ML 1000 ML IV (16:15)
[2025-08-18 16:31] LABS: Creatine Kinase 61 U/L (30-135)
[2025-08-18 16:44] LABS: Troponin I < 0.012 ng/mL (0.01-0.034)
[2025-08-18] MEDS: MAG HYDROX/ALUMINUM/SIMETH SUS 20 ML, LIDOCAINE VISCOUS 2% 15 ML PO (18:34)
[2025-08-18 19:01] LABS: Creatine Kinase 57 U/L (30-135)
[2025-08-18 19:13] LABS: Troponin I < 0.012 ng/mL (0.01-0.034)
[2025-08-18 19:45] LABS: Appearance Urine UA CLEAR; Bilirubin Urine UA NEGATIVE (NEGATIVE); Color Urine UA YELLOW; Glucose Urine UA NEGATIVE (Negative); Ketones Urine UA 1+ (NEGATIVE); Leukocyte Esterase Urine UA NEGATIVE (NEGATIVE); Nitrite Urine UA NEGATIVE (Negative); Occult Blood Urine UA TRACE-INTACT (Negative); Protein Urine UA NEGATIVE (Negative); Specific Gravity Urine UA 1.020 (1.000-1.035); Urobilinogen Urine UA 1.0 E.U./dL (0.2)
[2025-08-18 19:49] LABS: pH Urine UA 6.0 (4.5-8.0)
[2025-08-18 19:51] LABS: Culture Indicated Urine Cult Not Indicated
--- NOTE | 2025-08-18 20:18 | DI.US.S_ITS ---
PROCEDURE: US ABDOMEN LIMITED INDICATIONS: ruq TECHNIQUE: Real-time scanning was performed of the abdominal and retroperitoneal organs, with image documentation. COMPARISON: [facility], US, US ABDOMEN LIMITED, 07/25/2023, 2:19. [facility], CT, CT ABDOMEN PELVIS W CON, 08/18/2025, 16:52. FINDINGS: Liver: Measures 14 cm. Multiple cysts measuring up to 4.9 cm. No definite solid mass. Gallbladder: No gallstones. No wall thickening. No pericholecystic edema. Negative sonographic Sidhu's sign. Biliary ducts: Intrahepatic bile ducts are non-dilated. Extrahepatic bile duct caliber measures 3 mm. Normal is 6-7 mm or less in diameter, or 10 mm or less post-cholecystectomy. Pancreas: Visualized portions of the pancreas are sonographically normal. Miscellaneous: No free abdominal fluid. IMPRESSION: 1. No cholelithiasis or biliary dilatation seen. 2. Redemonstration of multiple hepatic cysts. Dictated by: Mk Cason M.D. on 08/18/2025 at 21:12 Approved by: Mk Cason M.D. on 08/18/2025 at 21:14
[2025-08-18] MEDS: KETOROLAC 30 MG/ML VIAL 15 MG IV (20:36)
--- NOTE | 2025-08-18 20:54 | PC.NURSE ---
US at bedside
== END 2025-08-18 22:27 | disposition home or self-care (01) ==
PROVIDERS: Emergency Medicine; Emergency Provider Family Medicine; PCP Family Medicine
DX: R10.11 Right upper quadrant pain (principal); K21.9 Gastro-esophageal reflux disease without esophagitis; I10 Essential (primary) hypertension
CPT/HCPCS: 36415; 71275; 74177; 76705; 80053; 81001; 82550; 83690; 84484; 85025; 93005; 93010; 96361; 96374; 99284; J1885; J7030; Q9967

== ENCOUNTER → 2025-08-25 10:42 | Outpatient (CLI) | payer OTHER, SELFPAY ==
[2025-08-25 13:28] LABS: Vitamin B12 250 pg/mL (239-931)
[2025-08-26 03:08] LABS: Hepatitis A Antibody IgM Negative (Negative); Hepatitis B Core Antibody IgM Negative (Negative); Hepatitis C Antibody Non Reactive (Non Reactive)
== END ==
PROVIDERS: PCP Family Medicine; Referring Provider Physician Assistant; Visit Provider Physician Assistant
DX: R19.5 Other fecal abnormalities (principal); R10.11 Right upper quadrant pain; I15.8 Other secondary hypertension; F41.9 Anxiety disorder, unspecified
CPT/HCPCS: 36415; 80074; 82607

== ENCOUNTER → 2025-08-27 09:25 | Outpatient (CLI) | payer OTHER, SELFPAY ==
[2025-08-29 11:24] LABS: E coli Shiga Toxin EIA Negative (Negative)
[2025-08-29 12:40] LABS: Salmonella/Shigella Screen Final report (.)
[2025-08-30 14:41] LABS: H. Pylori Antigen Stool Negative (Negative)
[2025-08-30 16:09] LABS: Calprotectin, Stool 36 ug/g (0-120)
== END ==
PROVIDERS: Physician Assistant; PCP Family Medicine; Referring Provider Family Medicine; Visit Provider Family Medicine
DX: R19.5 Other fecal abnormalities (principal); R10.11 Right upper quadrant pain; I15.8 Other secondary hypertension; F41.9 Anxiety disorder, unspecified
CPT/HCPCS: 83993; 87045; 87338

== ENCOUNTER → 2025-09-21 10:04 | Outpatient (CLI) | payer OTHER, SELFPAY ==
--- NOTE | 2025-09-21 10:05 | DI.ECHO.S_ITS ---
[facility] : : [id number] : [place] : : [id number] : : Phone: [phone] Echocardiogram Report + + :Name: ITZ PUGH Study Date: 09/21/2025 Height: 71 in : :[facility] ReadingLocation: Weight: 215 lb : : Gender: Female BSA: 2.2 m2 : :: 1965 Age: 59 yrs BP: 129/89 mmHg: :Reason For Study: Screening, Chest pain : :Ordering Physician: MICHELLE, : :MILES Performed By: Vasyl Leiva : :Referring: MILES MARTINEZ : + + Interpretation Summary This is a technically difficult echo characterized by limited endocardial visualization particularly on apical views. Next time I strongly recommend Definity echocontrast. Normal sinus rhythm. Normal LV size and wall thickness; normal wall motion and LV systolic function. EF is 50-55%. Stage I diastolic dysfunction. Normal chamber sizes. No significant valve abnormalities. No prior echo available for comparison. Procedure: A two-dimensional transthoracic echocardiogram with color flow Doppler was performed. The study quality was technically adequate. There is no prior echocardiogram noted for this patient. The patient was in normal sinus rhythm during the exam. Left Ventricle: The left ventricle is normal in size and wall thickness. Left ventricular systolic function is mildly reduced. The ejection fraction is estimated to be 50-55%. Grade I diastolic dysfunction with normal left atrial pressure. Right Ventricle: The right ventricle is normal in size and function. Atria: The left atrial size is normal. Right atrial size is normal. There is no Doppler evidence for an interatrial shunt. Mitral Valve: The mitral valve leaflets appear to open well. There is no mitral valve stenosis. There is trace mitral regurgitation. Aortic Valve: Aortic valve leaflets are not well visualize can not confirm that valve is trileaflet. There is no aortic valve stenosis. No aortic regurgitation is present. Tricuspid Valve: The tricuspid valve leaflets are thin and pliable. There is trace tricuspid regurgitation. Pulmonary artery pressures cannot be estimated because of the lack of a measurable TR jet velocity but the IVC suggests a CVP of around 3 mmHg. Pulmonic Valve: The pulmonic valve is not well seen, but is grossly normal. There is a trace or physiologic amount of pulmonic regurgitation. Great Vessels: The aortic root is normal size. The ascending aorta could not be visualized. The aortic arch could not be visualized. The pulmonary is not well visualized. The IVC is of normal diameter and collapses greater than 50% with a sniff. This suggests a low right atrial pressure of 3 mm Hg. Pericardium/ Pleura There is no pericardial effusion. MMode/2D Measurements & Calculations LVIDd: 4.1 cm LVOT diam: 2.0 cm LVIDs: 3.1 cm Ao root diam: 3.1 cm FS: 25.1 % IVSd: 0.98 cm LVPWd: 0.93 cm LV manrique. diameter/BSA (cm/m^2): 1.9 LV sys. diameter/BSA (cm/m^2): 1.4 LA A2 area: 16.1 cm2 IVC diam: 1.5 cm LA A4 area: 15.6 cm2 LA length (vol): 5.2 cm LA vol: 40.7 ml LA vol index: 18.7 ml/m2 RVD1 (basal): 2.2 cm RVD2 (mid): 1.9 cm TAPSE: 2.1 cm Doppler Measurements & Calculations Ao V2 max: 113.1 cm/sec LVOT Max Frandy: 96.7 cm/sec Ao V2 mean: 86.9 cm/sec LV V1 max P.7 mmHg Ao max P.1 mmHg LV V1 VTI: 18.1 cm Ao mean P.2 mmHg SHAVONNE(I,D): 2.7 cm2 Ao V2 VTI: 20.3 cm SHAVONNE(V,D): 2.6 cm2 sev ratio: 0.89 SHAVONNE indexed to BSA (cm^2/m^2): 1.3 MV E max frandy: 38.1 cm/sec PA V2 max: 97.4 cm/sec MV A max frandy: 57.1 cm/sec PA V2 mean: 67.1 cm/sec MV E/A: 0.67 PA mean P.0 mmHg MV dec time: 0.17 sec SV(LVOT): 55.9 ml Electronically signed by: Cathryn Hicks M.D. on Reading Physician:09/22/2025 03:00 AM
== END ==
LOC: ECHO 10:04
PROVIDERS: PCP Family Medicine; Referring Provider Family Medicine; Visit Provider Family Medicine
DX: I15.8 Other secondary hypertension (principal); R07.9 Chest pain, unspecified
CPT/HCPCS: 93306

== ENCOUNTER → 2025-10-14 11:50 | Outpatient (CLI) | payer OTHER, SELFPAY ==
--- NOTE | 2025-10-14 11:50 | DI.MG.S_ITS ---
MM screening mammo BI: 10/14/2025. BI-RADS: 1 CLINICAL: 60-year old female for bilateral screening mammogram. Tyrer-Cuzick lifetime risk of 11.7%. Current reported family history of breast cancer: mother and sister. PRIOR EXAMS 07/20/2024. MAMMOGRAPHY TECHNIQUE: 2D and 3D (tomosynthesis) digital mammographic views obtained, with additional images as needed for full coverage. Current study was also evaluated with a Computer Aided Detection (CAD) system. DENSITY A. The breasts are almost entirely fatty. MAMMOGRAPHY FINDINGS Bilateral: No suspicious mass, asymmetry, microcalcification, or other abnormality seen. IMPRESSION: * No evidence of malignancy. RECOMMENDATIONS Bilateral * Annual screening mammography. OVERALL ASSESSMENT CATEGORY BI-RADS-1: Negative. The [employer] recommends annual screening mammography beginning at age 40 for women with average risk of breast cancer. ELECTRONICALLY SIGNED: Marika Macdonald M.D. on 10/14/2025 at 04:42:33 PM PT Interpreting Station ID: [id number]
== END ==
PROVIDERS: PCP Family Medicine; Referring Provider Family Medicine; Visit Provider Family Medicine
DX: Z12.31 Encounter for screening mammogram for malignant neoplasm of breast (principal); R92.313 Mammographic fatty tissue density, bilateral breasts
CPT/HCPCS: 77063; 77067